=== PATIENT | female | born 1990 | race Caucasian/White ===

== ENCOUNTER 2017-10-28 13:51 | Outpatient (CLI) | payer MEDICAID, SELFPAY ==
[2017-10-28 14:34] LABS: Abs Immature Grans 0.03 k/cumm (0.0-0.09); Absolute Basophil Count 0.01 k/cumm (0.0-0.2); Absolute Eosinophil Count 0.13 k/cumm (0.0-0.7); Absolute Lymphocyte Count 1.79 k/cumm (1.2-3.4); Absolute Monocyte Count 0.61 k/cumm (0.11-0.7); Basophils % 0.1; Eosinophils % 1.3; HCT 35.7 % (36.0-46.0); HGB 12.7 g/dL (12.0-15.5); Immature Grans % 0.3; Lymphocytes % 18.3; Mean Corp. HGB Concentration 35.6 g/dL (32.0-36.0); Mean Corpuscular Hemoglobin 29.3 pg (27.0-33.0); Mean Corpuscular Volume 82.4 fL (80-95); Mean Platelet Volume 9.1 fL (8.0-11.0); Monocytes % 6.2; Neutrophils % 73.8; Platelet Count 287 x1000/uL (130-400); RBC 4.33 m/cumm (4.00-5.20); RBC Distribution Width 12.5 % (11.7-14.6); White Blood Cell Count 9.77 k/cumm (4.4-10.8)
[2017-10-29 11:17] LABS: Hepatitis B Surface Ag Negative (NEGAT)
[2017-10-29 11:34] LABS: HIV-1/2 Ag & Ab Screen Negative (NEGAT)
[2017-10-29 11:35] LABS: Hepatitis C Ab w Rflx HCV PCR Negative (NEGAT)
[2017-10-30 08:43] LABS: Rubella IgG Ab (UVM) Negative; Syphilis Serology (RPR) Negative (Negative)
== END 2017-10-28 14:11 ==
PROVIDERS: Visit Provider Obstetrics & Gynecology
DX: Z34.91 Encounter for supervision of normal pregnancy, unspecified, first trimester (principal)
CPT/HCPCS: 36415; 80055; 86850; 86900; 86901

== ENCOUNTER 2017-11-05 15:09 | Outpatient (CLI) | payer MEDICAID, SELFPAY ==
[2017-11-05 16:01] LABS: Abs Immature Grans 0.02 k/cumm (0.0-0.09); Absolute Basophil Count 0.02 k/cumm (0.0-0.2); Absolute Eosinophil Count 0.17 k/cumm (0.0-0.7); Absolute Lymphocyte Count 2.01 k/cumm (1.2-3.4); Absolute Monocyte Count 0.54 k/cumm (0.11-0.7); Absolute Neutrophil Count 6.11 k/cumm (1.2-6.7); Basophils % 0.2; Eosinophils % 1.9; HCT 36.3 % (36.0-46.0); HGB 12.7 g/dL (12.0-15.5); Immature Grans % 0.2; Lymphocytes % 22.7; Mean Corpuscular Hemoglobin 29.1 pg (27.0-33.0); Mean Corpuscular Volume 83.1 fL (80-95); Mean Platelet Volume 9.3 fL (8.0-11.0); Monocytes % 6.1; Neutrophils % 68.9; Platelet Count 278 x1000/uL (130-400); RBC 4.37 m/cumm (4.00-5.20); RBC Distribution Width 12.9 % (11.7-14.6); White Blood Cell Count 8.87 k/cumm (4.4-10.8)
[2017-11-05 16:34] LABS: *AMPHETAMINES SCREEN URINE Negative (Negative); *BARBITURATES SCREEN URINE Negative (Negative); *BENZODIAZEPINES SCREEN URINE Negative (Negative); Cannabinoids THC Negative (Negative); Cocaine Screen,Urine Negative (Negative); METHADONE URINE SCREEN Negative (Negative); OPIATES URINE SCREEN Negative (Negative); Tricyclic Antidepressants Negative (Negative)
[2017-11-05 17:03] LABS: TSH (W/Ref FT4) 1.59 uIU/mL (0.358-3.74)
[2017-11-07 12:15] LABS: HIV-1/2 Ag & Ab Screen Negative (NEGAT); Hepatitis B Surface Ag Negative (NEGAT)
[2017-11-07 12:29] LABS: Hepatitis C Ab w Rflx HCV PCR Negative (NEGAT); Rubella IgG Ab (UVM) Negative; Varicella IgG Antibody Positive
[2017-11-07 13:19] LABS: Syphilis Serology (RPR) Negative (Negative)
[2017-11-07 14:46] LABS: Chlamydia Result Negative; GC Result Negative; Specimen Description CERVIX
[2017-11-10 15:03] LABS: Buprenorphine Negative; Norbuprenorphine Negative
== END 2017-11-05 15:29 ==
PROVIDERS: Visit Provider Advanced Practice Midwife
DX: Z34.91 Encounter for supervision of normal pregnancy, unspecified, first trimester (principal); Z11.3 Encounter for screening for infections with a predominantly sexual mode of transmission; Z11.4 Encounter for screening for human immunodeficiency virus [HIV]; Z11.59 Encounter for screening for other viral diseases; Z01.84 Encounter for antibody response examination
CPT/HCPCS: 36415; 80307; 86787; 86803; 86850; 86900; 86901; 87340; 87389; 87491; 87591; 84443; 85025; 86592; 86762; 87086

== ENCOUNTER 2017-12-16 00:31 | Outpatient (CLI) | payer MEDICAID, SELFPAY ==
--- NOTE | 2017-12-16 07:19 | DI.US_ITS ---
Many abnormalities cannot be diagnosed. A normal exam does not exclude a congenital anomaly. Radiology No. LMP: Exam Date: 12/16/17 [facility] wks days on EDC ([facility]) 05/22/18 Confirmed: HISTORY: SURVEY, Z34.90 ---- PREDICTED GESTATIONAL AGE NUMBER 17.4 weeks with a range of 16.4 week to 18.4 weeks. 1 Determined by___1STUS___LMP__X_HISTORY Info. pertaining to fetus # PLACENTA PRESENTATION Grade 0-1 Cephalic___ Anterior_X__Posterior___ Breech__X__ Right Left Transverse(head right___ Fundal___Low-lying___Previa___ Transverse(head left___ Varying BIOMETRY AMNIOTIC FLUID BPD: 35 mm 16.5 weeks Normal HC: 142 mm 17.4 weeks AC: 116 mm 17.2 weeks FL: 23 mm 17 weeks AMNIOTIC FLUID INDEX >26 WK CRL: mm weeks Cisterna Magna: 4.4 mm CI: 72 RUQ: LUQ Cerebellum: 1.73 cm EFW: 184 grams 22 nd Percentile RLQ: LLQ Total: cms Composite AGE= 17.1 wks EDC by US 05/25/18____ BIOPHYSICAL PROFILE ANATOMY IDENTIFIED SCORE 0/2 Heart: 4-Chamber_X__Rate:BPM__136___ LVOT: X_ RVOT:____X____ Amniotic Fluid(>2cms)____ Stomach: X Kidneys:____X___ Respirations (>30 secs) Bladder: NS___ Post. Fossa:____X Body Flex/Extension 3 vessel cord:__X Ventricles:___X cord insertion:___X__ Lips:___X_ Extremity Flex/Extension spinal morphology:____X____Nose:X Total Score= Palate: X__ NS=not seen The bladder is suboptimally distended. A viable breech intrauterine rebolledo has a cardiac rate of 136 beats per minute. The gestational age is estimated to be 17 weeks and 1 day. An anterior placenta is identified. The amniotic fluid index is normal. The patient is to return for follow up bladder images on 12/22/17. Please see the OB ultrasound worksheet for complete details
== END 2017-12-16 00:51 ==
PROVIDERS: Visit Provider Obstetrics & Gynecology
DX: Z34.92 Encounter for supervision of normal pregnancy, unspecified, second trimester (principal)
CPT/HCPCS: 76805

== ENCOUNTER 2017-12-22 01:06 | Outpatient (CLI) | payer SELFPAY ==
--- NOTE | 2017-12-22 15:00 | DI.US_ITS ---
SYMPTOM/DIAGNOSIS: F/U TO COMPLETE SURVEY LIMITED OBSTETRICAL ULTRASOUND: Comparison is 12/16/17. There is a single intrauterine fetus in the cephalic presentation. heart rate is 160 BPM The urinary bladder was visualized with two umbilical arteries present. The placenta is anterior. A complete anatomic evaluation and biometry were not performed at this examination. Many abnormalities cannot be diagnosed. A normal exam does not exclude a congenital anomaly. Radiology No. [id number] LMP: 08/15/2017 Exam Date: [facility] wks days on EDC ([facility]) 05/22/2018 Confirmed: HISTORY: f/u bladder images ---- PREDICTED GESTATIONAL AGE NUMBER 18 +3 weeks with a range of week to weeks. 1 Determined by_XX__1STUS___LMP___HISTORY Info. pertaining to fetus # PLACENTA PRESENTATION Grade I Cephalic__XX_ Anterior___Posterior___ Breech____ Right Left Transverse(head right___ Fundal___Low-lying___Previa___ Transverse(head left___ Varying BIOMETRY AMNIOTIC FLUID BPD: mm weeks Normal HC: mm weeks Oligo Polyhydramnios AC: mm weeks FL: mm weeks AMNIOTIC FLUID INDEX >26 WK CRL: mm weeks Cisterna Magna: mm CI: RUQ: LUQ Cerebellum: cm EFW: grams Percentile RLQ: LLQ Total: cms Composite AGE= wks EDC by US BIOPHYSICAL PROFILE ANATOMY IDENTIFIED SCORE 0/2 Heart: 4-Chamber___Rate:BPM_160____ LVOT: RVOT: Amniotic Fluid(>2cms)____ Stomach: Kidneys: Respirations (>30 secs) Bladder:__XX Post. Fossa: Body Flex/Extension 3 vessel cord: Ventricles: cord insertion: Lips:____ Extremity Flex/Extension spinal morphology: Nose: Total Score= Palate: NS=not seen
== END 2017-12-22 01:26 ==
PROVIDERS: Visit Provider Obstetrics & Gynecology
DX: Z34.92 Encounter for supervision of normal pregnancy, unspecified, second trimester (principal); Z36.2 Encounter for other antenatal screening follow-up
CPT/HCPCS: 76815

== ENCOUNTER 2018-01-07 00:27 | Outpatient (CLI) | payer SELFPAY ==
--- NOTE | 2018-01-07 13:45 | DI.US_ITS ---
SYMPTOMS/DIAGNOSIS: FLANK PAIN, R10.9, H/O RENAL CALCULUS, PT IS RENAL ULTRASOUND: The right kidney measures 10.2 cm in length. There is normal parenchymal thickness. There is mild hydronephrosis. There is a 4 mm shadowing echogenic focus in the mid right kidney and an additional 8 mm calcification also in the mid right kidney closer to the lower pole. The left kidney is normal in size and parenchymal thickness. No left renal calculi or left hydronephrosis is seen. The bladder wall appears smooth. Both ureteral jets were visualized. The prevoid bladder volume measures 382 cc's. No bladder calculi are seen. There is a postvoid residual of 5 cc's. IMPRESSION: Mild right hydronephrosis. Right renal calculi.
== END 2018-01-07 00:47 ==
PROVIDERS: Visit Provider Obstetrics & Gynecology Gynecology
DX: R10.31 Right lower quadrant pain (principal); N13.30 Unspecified hydronephrosis; N20.0 Calculus of kidney; Z33.1 Pregnant state, incidental
CPT/HCPCS: 76770

== ENCOUNTER 2018-03-02 14:46 | Outpatient (CLI) | payer MEDICAID, SELFPAY ==
[2018-03-02 15:35] LABS: Glucose,1 Hr (Glucola) 95 mg/dL (80-140)
[2018-03-02 15:46] LABS: HCT 35.3 % (36.0-46.0); HGB 12.1 g/dL (12.0-15.5); Mean Corp. HGB Concentration 34.3 g/dL (32.0-36.0); Mean Corpuscular Hemoglobin 29.4 pg (27.0-33.0); Mean Corpuscular Volume 85.9 fL (80-95); Mean Platelet Volume 9.1 fL (8.0-11.0); Platelet Count 284 x1000/uL (130-400); RBC 4.11 m/cumm (4.00-5.20); RBC Distribution Width 13.1 % (11.7-14.6)
== END 2018-03-02 15:06 ==
PROVIDERS: PCP Internal Medicine; Visit Provider Obstetrics & Gynecology Gynecology
DX: Z34.93 Encounter for supervision of normal pregnancy, unspecified, third trimester (principal)
CPT/HCPCS: 36415; 82950; 85027

== ENCOUNTER 2018-03-13 11:14 | Outpatient (CLI) | payer MEDICAID, SELFPAY | END 2018-03-13 11:34 | PROVIDERS: PCP Internal Medicine; Visit Provider Obstetrics & Gynecology | DX: O26.893 Other specified pregnancy related conditions, third trimester (principal); R55 Syncope and collapse; Z3A.30 30 weeks gestation of pregnancy | CPT/HCPCS: 59025 ==

== ENCOUNTER 2018-04-28 17:14 | Outpatient (REF) | payer MEDICAID, SELFPAY | END 2018-04-28 17:34 | LOC: LBN 17:14 | PROVIDERS: PCP Internal Medicine; Visit Provider Obstetrics & Gynecology | DX: Z34.93 Encounter for supervision of normal pregnancy, unspecified, third trimester (principal); Z36.85 Encounter for antenatal screening for Streptococcus B | CPT/HCPCS: 87081 ==

== ENCOUNTER 2018-05-29 16:45 | Inpatient (IN) | payer MEDICAID, SELFPAY ==
[2018-05-29 17:45] LABS: HCT 32.9 % (36.0-46.0); HGB 10.9 g/dL (12.0-15.5); Mean Corp. HGB Concentration 33.1 g/dL (32.0-36.0); Mean Corpuscular Hemoglobin 26.5 pg (27.0-33.0); Platelet Count 295 x1000/uL (130-400); RBC 4.11 m/cumm (4.00-5.20); RBC Distribution Width 13.9 % (11.7-14.6); White Blood Cell Count 10.19 k/cumm (4.4-10.8)
[2018-05-29] MEDS: Lactated Ringers 1,000 ML 125 ML IV (19:06)
[2018-05-29] MEDS: miSOPROStol 25 MCG TAB PO (22:37)
[2018-05-29] MEDS: Zolpidem 5 MG TAB 10 MG PO (22:37)
[2018-05-30] MEDS: miSOPROStol 25 MCG TAB PO (02:59)
--- NOTE | 2018-05-30 08:40 | W.PM.HP.N ---
Date of service: 05/29/18 Time of Service: 22:00 Assessment and Plan (1) Post-dates : Current visit: Yes Status: Acute Admit for cervical ripening and IOL of labor with cytotec and then pitocin. We discussed options for pain management during labor. History of Present Illness 28 year old at 41 weeks admitted for IOL for postdates. Her has been complicated by nephrolithiasis. 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 - [employer] Pets and animals: No Sexually active: Yes Current gender identity: female What is your relationship status?: Panel score (0-1 are the most socially isolated patients): 1 Seatbelt use: always History History 1 Para 0 Hx # Term Pregnancies 0 Multiple births Hx # Pregnancies Ectopic pregnancies AB induced Hx Number of Living Children 0 AB spontaneous Meds Home Medications Medication Instructions Recorded Confirmed Type 1 tab PO DAILY 11/05/17 05/29/18 History vitamin,calcium,ikxrajya-xagl-vfoph acid tablet pantoprazole 20 mg tablet,delayed 20 mg PO DAILY #30 tab 02/27/18 05/29/18 Rx release oxycodone-acetaminophen 5 mg-325 1 tab PO Q6H #10 tab MDD 4 05/25/18 05/29/18 Rx mg tablet Allergies Allergy/AdvReac Type Severity Reaction Status Date / Time No Known Allergies Allergy Verified 05/20/18 12:45 Results Labs : 05/29/18 Unknown Laboratory Results - last 24 hr 05/29/18 05/29/18 05/29/18 17:30 17:30 Unknown WBC 10.19 Cancelled RBC 4.11 Cancelled Hgb 10.9 L Cancelled Hct 32.9 L Cancelled MCV 80.0 Cancelled MCH 26.5 L Cancelled MCHC 33.1 Cancelled RDW 13.9 Cancelled Plt Count 295 Cancelled MPV 9.0 Cancelled Patient ABO/Rh O Positive Antibody Screen Negative 05/29/18 Unknown WBC RBC Hgb Hct MCV MCH MCHC RDW Plt Count MPV Patient ABO/Rh Cancelled Antibody Screen
--- NOTE | 2018-05-30 08:43 | HPE_ITS ---
Date of service: 05/29/18 Time of Service: 22:00 Assessment and Plan (1) Post-dates : Current visit: Yes Status: Acute Admit for cervical ripening and IOL of labor with cytotec and then pitocin. We discussed options for pain management during labor. History of Present Illness 28 year old at 41 weeks admitted for IOL for postdates. Her has been complicated by nephrolithiasis. 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 - [employer] Pets and animals: No Sexually active: Yes Current gender identity: female What is your relationship status?: Panel score (0-1 are the most socially isolated patients): 1 Seatbelt use: always History History 1 Para 0 Hx # Term Pregnancies 0 Multiple births Hx # Pregnancies Ectopic pregnancies AB induced Hx Number of Living Children 0 AB spontaneous Meds Home Medications Medication Instructions Recorded Confirmed Type 1 tab PO DAILY 11/05/17 05/29/18 History vitamin,calcium,dcequgcc-jtgj-kqalp acid tablet pantoprazole 20 mg tablet,delayed 20 mg PO DAILY #30 tab 02/27/18 05/29/18 Rx release oxycodone-acetaminophen 5 mg-325 1 tab PO Q6H #10 tab MDD 4 05/25/18 05/29/18 Rx mg tablet Allergies Allergy/AdvReac Type Severity Reaction Status Date / Time No Known Allergies Allergy Verified 05/20/18 12:45 Results Labs : 05/29/18 Unknown Laboratory Results - last 24 hr 05/29/18 05/29/18 05/29/18 17:30 17:30 Unknown WBC 10.19 Cancelled RBC 4.11 Cancelled Hgb 10.9 L Cancelled Hct 32.9 L Cancelled MCV 80.0 Cancelled MCH 26.5 L Cancelled MCHC 33.1 Cancelled RDW 13.9 Cancelled Plt Count 295 Cancelled MPV 9.0 Cancelled Patient ABO/Rh O Positive Antibody Screen Negative 05/29/18 Unknown WBC RBC Hgb Hct MCV MCH MCHC RDW Plt Count MPV Patient ABO/Rh Cancelled Antibody Screen
[2018-05-30] MEDS: Lactated Ringers 1,000 ML 125 ML IV ×3 (12:43→22:28)
[2018-05-30] MEDS: MORPHine 2 MG/ML SYR IVP (17:57)
[2018-05-30] MEDS: Normal Saline Flush 10 ML SYR IVP (17:58)
--- NOTE | 2018-05-30 19:48 | W.PM.PROGNOT ---
Date of Service Date of service: 05/30/18 Time of Service: 19:48 Subjective Interval history since last seen: I was contacted by nursing for question of recurrent late decelerations on the tracing. Pitocin had been discontinued, oxygen applied, fluid bolus given, and patient repositioned. On my review of the tracing two variable decelerations are noted approximately 1 hour ago. Recurrent accelerations are noted with no late decelerations. The tracing is Category I. Cx now 4/100/-2 with contractions q 2 min. The patient requests an epidural at this point. Will consult anesthesia. Plan to restart the pitocin after the epidural is administered. Objective Objective Clinical Data: Vital Signs Pain Level 8 05/30/18 17:57 Intake & Output 05/29/18 05/30/18 05/30/18 23:59 11:59 23:59 Intake Total 390.917 / 390.917 7.65 / 780.567 772.917 / 780.567 Balance 390.917 / 390.917 7.65 / 780.567 772.917 / 780.567 Weight 160 lb Intake: IV 390.917 / 390.917 7.65 / 780.567 772.917 / 780.567 Laboratory Results WBC Cancelled 05/29/18 Unknown RBC Cancelled 05/29/18 Unknown Hgb Cancelled 05/29/18 Unknown Hct Cancelled 05/29/18 Unknown MCV Cancelled 05/29/18 Unknown MCH Cancelled 05/29/18 Unknown MCHC Cancelled 05/29/18 Unknown RDW Cancelled 05/29/18 Unknown Plt Count Cancelled 05/29/18 Unknown MPV Cancelled 05/29/18 Unknown Patient ABO/Rh Cancelled 05/29/18 Unknown Antibody Screen Negative 05/29/18 17:30
--- NOTE | 2018-05-30 19:52 | PGE_ITS ---
Date of Service Date of service: 05/30/18 Time of Service: 19:48 Subjective Interval history since last seen: I was contacted by nursing for question of recurrent late decelerations on the tracing. Pitocin had been discontinued, oxygen applied, fluid bolus given, and patient repositioned. On my review of the tracing two variable decelerations are noted approximately 1 hour ago. Recurrent accelerations are noted with no late decelerations. The tracing is Category I. Cx now 4/100/-2 with contractions q 2 min. The patient requests an epidural at this point. Will consult anesthesia. Plan to restart the pitocin after the epidural is admin istered. Objective Objective Clinical Data: Vital Signs Pain Level 8 05/30/18 17:57 Intake & Output 05/29/18 05/30/18 05/30/18 23:59 11:59 23:59 Intake Total 390.917 / 390.917 7.65 / 780.567 772.917 / 780.567 Balance 390.917 / 390.917 7.65 / 780.567 772.917 / 780.567 Weight 160 lb Intake: IV 390.917 / 390.917 7.65 / 780.567 772.917 / 780.567 Laboratory Results WBC Cancelled 05/29/18 Unknown RBC Cancelled 05/29/18 Unknown Hgb Cancelled 05/29/18 Unknown Hct Cancelled 05/29/18 Unknown MCV Cancelled 05/29/18 Unknown MCH Cancelled 05/29/18 Unknown MCHC Cancelled 05/29/18 Unknown RDW Cancelled 05/29/18 Unknown Plt Count Cancelled 05/29/18 Unknown MPV Cancelled 05/29/18 Unknown Patient ABO/Rh Cancelled 05/29/18 Unknown Antibody Screen Negative 05/29/18 17:30
[2018-05-30] MEDS: FentaNYL/ROPIvacaine 2 mcg/ml and 0.1% 200 ML CADD Cassette EP (21:00)
[2018-05-30] MEDS: Ondansetron 4 MG/2 ML VIAL IVP (21:45)
[2018-05-31] MEDS: Ibuprofen 600 MG TAB PO ×3 (04:58→19:04)
[2018-05-31] MEDS: Acetaminophen 325 MG TAB 650 MG PO ×3 (04:58→15:37)
[2018-05-31] MEDS: Hamamelis Leaf/Glycerin 100 EACH BOX PR (05:00)
[2018-05-31] MEDS: Prenatal Multivitamin w/CA,FE TAB 1 TAB PO (10:11)
--- NOTE | 2018-05-31 11:19 | W.PM.PROGNOT ---
Date of Service Date of service: 06/01/18 Time of Service: 18:55 Assessment and Plan (1) Vaginal delivery: Current visit: Yes Status: Acute PPD 0 s/p with vaginal tear. Continue routine care. Subjective Interval history since last seen: Doing well this morning. Pain well controlled No significant vaginal bleeding. Has been out of bed. Objective Objective Clinical Data: Vital Signs Pain Level 1 05/31/18 10:11 Intake & Output 05/30/18 05/30/18 05/31/18 11:59 23:59 11:59 Intake Total 7.65 / 8636.500 8655.516 / 1375.166 Balance 7.65 / 3459.788 5171.516 / 1375.166 Weight 160 lb Intake: IV 7.65 / 3979.591 0129.516 / 1375.166 Laboratory Results WBC Cancelled 05/29/18 Unknown RBC Cancelled 05/29/18 Unknown Hgb Cancelled 05/29/18 Unknown Hct Cancelled 05/29/18 Unknown MCV Cancelled 05/29/18 Unknown MCH Cancelled 05/29/18 Unknown MCHC Cancelled 05/29/18 Unknown RDW Cancelled 05/29/18 Unknown Plt Count Cancelled 05/29/18 Unknown MPV Cancelled 05/29/18 Unknown Patient ABO/Rh Cancelled 05/29/18 Unknown Antibody Screen Negative 05/29/18 17:30
[2018-06-01] MEDS: Ibuprofen 600 MG TAB PO ×4 (01:01→20:37)
[2018-06-01] MEDS: Acetaminophen 325 MG TAB 650 MG PO ×4 (01:01→15:45)
[2018-06-01] MEDS: Prenatal Multivitamin w/CA,FE TAB 1 TAB PO (07:37)
[2018-06-01] MEDS: oxyCODONE 5 mg/Acetaminophen 325 mg TAB PO ×3 (17:40→21:55)
[2018-06-01 18:39] LABS: HCT 26.6 % (36.0-46.0); HGB 8.5 g/dL (12.0-15.5); Mean Corpuscular Hemoglobin 26.3 pg (27.0-33.0); Mean Corpuscular Volume 82.4 fL (80-95); Mean Platelet Volume 8.9 fL (8.0-11.0); Platelet Count 301 x1000/uL (130-400); RBC 3.23 m/cumm (4.00-5.20); RBC Distribution Width 14.2 % (11.7-14.6); White Blood Cell Count 12.23 k/cumm (4.4-10.8)
[2018-06-01 18:48] LABS: ALT 14 U/L (12-78); AST 18 U/L (15-37); Albumin 2.4 g/dL (3.4-5.0); Alkaline Phosphatase 135 U/L (46-116); Anion Gap 10.2 mmol/L (3-11); BUN 8 mg/dL (7-18); Bilirubin, Total 0.2 mg/dL (0.2-1.0); CO2 23.8 mmol/L (21.0-32.0); CREATININE 0.65 mg/dL (0.55-1.02); Calcium 8.4 mg/dL (8.5-10.1); Chloride 105 mmol/L (98-107); Glucose 83 mg/dL (70-100); Potassium 3.4 mmol/L (3.5-5.1); Sodium 139 mmol/L (136-145); Total Protein 5.7 g/dL (6.4-8.2)
--- NOTE | 2018-06-01 18:58 | PGE_ITS ---
Date of Service Date of service: 06/01/18 Time of Service: 18:55 Assessment and Plan (1) Vaginal delivery: Current visit: Yes Status: Acute PPD 0 s/p with vaginal tear. Continue routine care. Subjective Interval history since last seen: Doing well this morning. Pain well controlled No significant vaginal bleeding. Has been out of bed. Objective Objective Clinical Data: Vital Signs Pain Level 1 05/31/18 10:11 Intake & Output 05/30/18 05/30/18 05/31/18 11:59 23:59 11:59 Intake Total 7.65 / 4928.378 3744.516 / 1375.166 Balance 7.65 / 1629.044 1254.516 / 1375.166 Weight 160 lb Intake: IV 7.65 / 2393.755 0072.516 / 1375.166 Laboratory Results WBC Cancelled 05/29/18 Unknown RBC Cancelled 05/29/18 Unknown Hgb Cancelled 05/29/18 Unknown Hct Cancelled 05/29/18 Unknown MCV Cancelled 05/29/18 Unknown MCH Cancelled 05/29/18 Unknown MCHC Cancelled 05/29/18 Unknown RDW Cancelled 05/29/18 Unknown Plt Count Cancelled 05/29/18 Unknown MPV Cancelled 05/29/18 Unknown Patient ABO/Rh Cancelled 05/29/18 Unknown Antibody Screen Negative 05/29/18 17:30
--- NOTE | 2018-06-01 19:00 | W.PM.PROGNOT ---
Date of Service Date of service: 06/01/18 Time of Service: 19:00 Assessment and Plan (1) Vaginal delivery: Current visit: Yes Status: Acute (2) Fluid overload: Current visit: Yes Status: Acute Review of I/Os from labor show she is approximately 3 liters positive. Will provide a single dose of Lasix PO. Subjective Interval history since last seen: Called to bedside for evaluation of elevated blood pressure. The patient also reports pelvic, back and leg pain down inner thigh. Highest blood pressure was noted to be 142/80 and now is 119/72. Laboratory studies including CBC and CMP were normal. Exam Resp Other: Lungs CTA Extrem Other: 2+ pitting edema bilatarally Objective Objective Clinical Data: Abnormal lab results 06/01/18 06/01/18 Range/Units 18:30 18:30 WBC 12.23 H (4.4-10.8) k/cumm RBC 3.23 L (4.00-5.20) m/cumm Hgb 8.5 L (12.0-15.5) g/dL Hct 26.6 L (36.0-46.0) % MCH 26.3 L (27.0-33.0) pg Potassium 3.4 L (3.5-5.1) mmol/L Calcium 8.4 L (8.5-10.1) mg/dL Alkaline Phosphatase 135 H (46-116) U/L Total Protein 5.7 L (6.4-8.2) g/dL Albumin 2.4 L (3.4-5.0) g/dL Vital Signs Pain Level 4 06/01/18 15:45 Laboratory Results WBC 12.23 k/cumm (4.4-10.8) H 06/01/18 18:30 RBC 3.23 m/cumm (4.00-5.20) L 06/01/18 18:30 Hgb 8.5 g/dL (12.0-15.5) L 06/01/18 18:30 Hct 26.6 % (36.0-46.0) L 06/01/18 18:30 MCV 82.4 fL (80-95) 06/01/18 18:30 MCH 26.3 pg (27.0-33.0) L 06/01/18 18:30 MCHC 32.0 g/dL (32.0-36.0) 06/01/18 18:30 RDW 14.2 % (11.7-14.6) 06/01/18 18:30 Plt Count 301 x1000/uL (130-400) 06/01/18 18:30 MPV 8.9 fL (8.0-11.0) 06/01/18 18:30 Sodium 139 mmol/L (136-145) 06/01/18 18:30 Potassium 3.4 mmol/L (3.5-5.1) L 06/01/18 18:30 Chloride 105 mmol/L (98-107) 06/01/18 18:30 Carbon Dioxide 23.8 mmol/L (21.0-32.0) 06/01/18 18:30 Anion Gap 10.2 mmol/L (3-11) 06/01/18 18:30 BUN 8 mg/dL (7-18) 06/01/18 18:30 Creatinine 0.65 mg/dL (0.55-1.02) 06/01/18 18:30 Estimated GFR/1.73 m2 >= 60.00 (mL/min/1.73m2) 06/01/18 18:30 Glucose 83 mg/dL (70-100) 06/01/18 18:30 Calcium 8.4 mg/dL (8.5-10.1) L 06/01/18 18:30 Total Bilirubin 0.2 mg/dL (0.2-1.0) 06/01/18 18:30 AST 18 U/L (15-37) 06/01/18 18:30 ALT 14 U/L (12-78) 06/01/18 18:30 Alkaline Phosphatase 135 U/L (46-116) H 06/01/18 18:30 Total Protein 5.7 g/dL (6.4-8.2) L 06/01/18 18:30 Albumin 2.4 g/dL (3.4-5.0) L 06/01/18 18:30 Patient ABO/Rh Cancelled 05/29/18 Unknown Antibody Screen Negative 05/29/18 17:30
[2018-06-01] MEDS: Furosemide 20 MG TAB 10 MG PO (19:22)
[2018-06-02] MEDS: oxyCODONE 5 mg/Acetaminophen 325 mg TAB PO ×2 (03:10→07:08)
[2018-06-02 07:54] LABS: HCT 28.4 % (36.0-46.0); HGB 9.3 g/dL (12.0-15.5); Mean Corp. HGB Concentration 32.7 g/dL (32.0-36.0); Mean Corpuscular Hemoglobin 27.2 pg (27.0-33.0); Platelet Count 299 x1000/uL (130-400); RBC 3.42 m/cumm (4.00-5.20); RBC Distribution Width 14.1 % (11.7-14.6); White Blood Cell Count 9.61 k/cumm (4.4-10.8)
[2018-06-02] MEDS: Measles, Mumps, & Rubella Vaccine 0.5 ML VIAL SC (08:01)
[2018-06-02] MEDS: Prenatal Multivitamin w/CA,FE TAB 1 TAB PO (08:01)
--- NOTE | 2018-06-02 09:51 | W.PM.DS.N ---
Date of service: 06/02/18 Time of Service: 09:51 DS: Diagnosis Discharge Diagnosis (1) Vaginal delivery: Status: Acute (2) Fluid overload: Status: Acute (3) Right flank pain: Status: Acute Discharge Plan Disposition Patient Disposition: HOME Condition: Good Discharge Details Reason For Visit: IUP AT TERM Admit Date/Time: 05/29/18 16:45 Admit Provider: Amilcar Agustin Attending Provider: Amilcar Agustin Primary Care Provider: Matheus Puente Hospital Course Hospital Course: IOL at term. Cervical ripening and oxytocin augmentation of labor. Epidural for labor discomfort. of male infant named Chaim. Discharge to home PPD 2 successfully . Percocet for R flank pain. F/U appt with Dr. Alonso Urology Dept 06/06/18 Home Meds and New Rx's Prescriptions: No Action prenat.vits,terrell,prq-pozr-geqhl tablet 1 tab PO DAILY RF: 0 pantoprazole [Protonix] 20 mg tablet,delayed release (DR/EC) 20 mg PO DAILY Qty: 30 RF: 1 oxycodone-acetaminophen [Percocet] 5-325 mg tablet 1 tab PO Q6H MDD 4 Qty: 10 RF: 0 oxycodone-acetaminophen [Percocet] 5-325 mg tablet 1 tab PO Q6H MDD 4 PRN (Reason: pain) Qty: 14 RF: 0 Discharge Instructions Stand Alone Forms: BC Instructions, BC Post Vaginal Deliver Activity:: Activity as Tolerated Equipment/Supplies:: No Equipment Needed Diet:: As Tolerated Discharge Orders Discharge Orders: Discharge Order (Routine); Ordered 06/02/18 Ordered By: Yecenia Neil Exam Const General: no acute distress Nutritional Appearance: average body habitus Orientation: alert, awake and oriented x3 Chest Chest: normal inspection of the chest (Successfully breading. No evidence of nipple excoriation) Breast inspection: normal inspection of the breasts Resp Effort & Inspection: normal respiratory effort External Female Exam: external appearance normal (No swelling or ecchymosis.Intact suture line) Skin General skin exam: no rashes or lesions noted DS: Data Vitals/I&O Vitals and I&O: Vital Signs Pain Level 6 06/02/18 07:08 Labs on day of discharge: Labs from last 24 hours 06/02/18 06/01/18 06/01/18 07:28 18:30 18:30 WBC 9.61 12.23 H RBC 3.42 L 3.23 L Hgb 9.3 L 8.5 L Hct 28.4 L 26.6 L MCV 83.0 82.4 MCH 27.2 26.3 L MCHC 32.7 32.0 RDW 14.1 14.2 Plt Count 299 301 MPV 9.0 8.9 Sodium 139 Potassium 3.4 L Chloride 105 Carbon Dioxide 23.8 Anion Gap 10.2 BUN 8 Creatinine 0.65 Estimated GFR/1.73 m2 >= 60.00 Glucose 83 Calcium 8.4 L Total Bilirubin 0.2 AST 18 ALT 14 Alkaline Phosphatase 135 H Total Protein 5.7 L Albumin 2.4 L PFSH Social History Smoking/Tobacco Use Status: Never Second Hand Exposure: No Alcohol Intake: former Substance use type: does not use Adopted: No Caregiver/Support person: No Foster care: No Household members: spouse Number of Children: 0 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
--- NOTE | 2018-06-02 09:56 | DSE_ITS ---
Date of service: 06/02/18 Time of Service: 09:51 DS: Diagnosis Discharge Diagnosis (1) Vaginal delivery: Status: Acute (2) Fluid overload: Status: Acute (3) Right flank pain: Status: Acute Discharge Plan Disposition Patient Disposition: HOME Condition: Good Discharge Details Reason For Visit: IUP AT TERM Admit Date/Time: 05/29/18 16:45 Admit Provider: Amilcar Agustin Attending Provider: Amilcar Agustin Primary Care Provider: Matheus Puente Hospital Course Hospital Course: IOL at term. Cervical ripening and oxytocin augmentation of labor. Epidural for labor discomfort. of male infant named Chaim. Discharge to home PPD 2 successfully . Percocet for R flank pain. F/U appt with Dr. Alonso [facility] Dept 06/06/18 Home Meds and New Rx's Prescriptions: No Action prenat.vits,terrell,lxy-ujmg-halcy tablet 1 tab PO DAILY RF: 0 pantoprazole [Protonix] 20 mg tablet,delayed release (DR/EC) 20 mg PO DAILY Qty: 30 RF: 1 oxycodone-acetaminophen [Percocet] 5-325 mg tablet 1 tab PO Q6H MDD 4 Qty: 10 RF: 0 oxycodone-acetaminophen [Percocet] 5-325 mg tablet 1 tab PO Q6H MDD 4 PRN (Reason: pain) Qty: 14 RF: 0 Discharge Instructions Stand Alone Forms: BC Instructions, BC Post Vaginal Deliver Activity:: Activity as Tolerated Equipment/Supplies:: No Equipment Needed Diet:: As Tolerated Discharge Orders Discharge Orders: Discharge Order (Routine); Ordered 06/02/18 Ordered By: Yecenia Neil Exam Const General: no acute distress Nutritional Appearance: average body habitus Orientation: alert, awake and oriented x3 Chest Chest: normal inspection of the chest (Successfully breading. No evidence of nipple excoriation) Breast inspection: normal inspection of the breasts Resp Effort & Inspection: normal respiratory effort External Female Exam: external appearance normal (No swelling or ecchymosis.Intact suture line) Skin General skin exam: no rashes or lesions noted DS: Data Vitals/I&O Vitals and I&O: Vital Signs Pain Level 6 06/02/18 07:08 Labs on day of discharge: Labs from last 24 hours 06/02/18 06/01/18 06/01/18 07:28 18:30 18:30 WBC 9.61 12.23 H RBC 3.42 L 3.23 L Hgb 9.3 L 8.5 L Hct 28.4 L 26.6 L MCV 83.0 82.4 MCH 27.2 26.3 L MCHC 32.7 32.0 RDW 14.1 14.2 Plt Count 299 301 MPV 9.0 8.9 Sodium 139 Potassium 3.4 L Chloride 105 Carbon Dioxide 23.8 Anion Gap 10.2 BUN 8 Creatinine 0.65 Estimated GFR/1.73 m2 >= 60.00 Glucose 83 Calcium 8.4 L Total Bilirubin 0.2 AST 18 ALT 14 Alkaline Phosphatase 135 H Total Protein 5.7 L Albumin 2.4 L PFSH Social History Smoking/Tobacco Use Status: Never Second Hand Exposure: No Alcohol Intake: former Substance use type: does not use Adopted: No Caregiver/Support person: No Foster care: No Household members: spouse Number of Children: 0 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
== END 2018-06-02 11:45 | disposition home or self-care (01) | DRG 806 ==
PROVIDERS: Admitting Provider Obstetrics & Gynecology; PCP Internal Medicine; Visit Provider Obstetrics & Gynecology
DX: O48.0 Post-term pregnancy (principal); O71.4 Obstetric high vaginal laceration alone; Z37.0 Single live birth; Z3A.41 41 weeks gestation of pregnancy; O76 Abnormality in fetal heart rate and rhythm complicating labor and delivery; O90.89 Other complications of the puerperium, not elsewhere classified; E87.70 Fluid overload, unspecified; M54.5 Low back pain; Z87.442 Personal history of urinary calculi
CPT/HCPCS: 36415; 80053; 85027; 86850; 86900; 86901; 99223; 99233; NC; 59200; J2405; J3010; J3490

== ENCOUNTER 2018-07-07 00:17 | Outpatient (CLI) | payer MEDICAID, SELFPAY ==
--- NOTE | 2018-07-07 08:52 | DI.CT_ITS ---
SYMPTOM/DIAGNOSIS: RECURRENT KIDNEY STONES, CALCULUS OF KIDNEY, N20.0,ASSESS STONE ABDOMEN AND PELVIC CT: CT scan of the abdomen and pelvis was performed without intravenous or oral contrast. There is slight patient motion artifact. The visualized lung bases are clear. Lack of IV contrast does limit evaluation of the abdominal and pelvic organs. The unenhanced liver is unremarkable. The gallbladder appears negative. No biliary ductal dilatation is seen. The unenhanced pancreas, spleen and adrenal glands show no acute abnormality. There are stones seen within the right kidney, there are approximately 4 stones present. The largest is seen in the lower pole and measures 3 mm. There is a 2 mm. stone seen in the mid pole. No right ureterolithiasis or hydronephrosis identified. In the left kidney, there is a tiny, 1-2 mm. non obstructing stone in the lower pole. No ureterolithiasis or hydronephrosis is present. The urinary bladder is intact. The reproductive organs are unremarkable. The bowel shows no evidence of obstruction or inflammation. There is a trace amount of free fluid in the cul-de-sac which is likely physiologic. No significant abdominal or pelvic adenopathy or pneumoperitoneum is seen. The abdominal aorta is of normal caliber. 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 An inflammatory arthritis cannot be excluded. IMPRESSION: 1. Bilateral nephrolithiasis.
== END 2018-07-07 00:37 ==
PROVIDERS: PCP Family Medicine; Visit Provider Urology
DX: N20.0 Calculus of kidney (principal)
CPT/HCPCS: 74176

== ENCOUNTER 2020-01-28 03:18 | Outpatient (CLI) | payer MEDICAID, SELFPAY ==
[2020-01-28 10:19] LABS: Abs Immature Grans 0.04 10^3/uL (0.0-0.06); Absolute Basophil Count 0.03 10^3/uL (0.0-0.2); Absolute Eosinophil Count 0.07 10^3/uL (0.0-0.7); Absolute Lymphocyte Count 1.68 10^3/uL (1.2-3.4); Absolute Monocyte Count 0.45 10^3/uL (0.1-0.8); Absolute Neutrophil Count 6.47 10^3/uL (1.2-6.7); Basophils % 0.3; Eosinophils % 0.8; HCT 36.3 % (36.0-46.0); HGB 12.5 g/dL (11.2-15.7); Immature Grans % 0.5; Lymphocytes % 19.2; MCH 28.5 pg (27.0-33.0); MCHC 34.4 % (32.0-36.0); MCV 82.7 fL (80-95); MPV 9.2 fL (8.0-11.0); Monocytes % 5.1; Neutrophils % 74.1; Nucleated RBC 0 %; Platelet Count 314 10^3/uL (130-400); RBC 4.39 10^6/uL (3.93-5.22); RDW 12.5 % (11.7-14.6); RDW-SD 37.8 fL; WBC 8.74 10^3/uL (4.4-10.8)
[2020-01-29 10:52] LABS: HIV-1/2 Ag & Ab Screen Negative (Negative)
[2020-01-29 14:47] LABS: Syphilis Total Ab w/Reflex Nonreactive (Nonreactive)
[2020-01-31 09:29] LABS: Hepatitis B Surface Ag Negative (Negative)
[2020-01-31 10:22] LABS: Hepatitis C Ab w Rflx HCV PCR Negative (Negative)
[2020-01-31 11:49] LABS: Varicella IgG Antibody Positive (See Note)
[2020-01-31 11:51] LABS: Rubella IgG Ab (UVM) Positive (See Note)
== END 2020-01-28 03:38 ==
PROVIDERS: PCP Family Medicine; Visit Provider Advanced Practice Midwife
DX: Z34.91 Encounter for supervision of normal pregnancy, unspecified, first trimester (principal); Z11.4 Encounter for screening for human immunodeficiency virus [HIV]; Z11.59 Encounter for screening for other viral diseases; Z01.84 Encounter for antibody response examination
CPT/HCPCS: 36415; 86787; 86803; 86850; 86900; 86901; 87340; 87389; 84443; 85025; 86762; 86780

== ENCOUNTER 2020-01-28 09:55 | Outpatient (REF) | payer MEDICAID, SELFPAY ==
--- NOTE | 2020-01-28 09:30 | PAPFT_PTH ---
PATIENT: [facility] LOC: [facility] U#:[id number] AGE/SX: 29/F ROOM: RE01/28/[address]: Johnson Alexandre RN : 1990 BED: DIS: 01/28/2020 SPEC #: [id number] RECD: 01/28/20 13:08 STATUS: ROHIT REJung #: [id number] KIM: 01/28/20 09:[address]: Johnson Alexandre DEPT: [facility] Cytology RECD BY: Nicolette De Leon ENTERED: 01/28/20 13:09 SP TYPE: PAPFT OTHR DR: Lenora Patten Tissues: 1 - CX/ENDOCX FOR PAP SMEARS Procedures: PAP THIN PREP/[facility] Screening Comments: [id number]
[2020-01-28 12:44] LABS: *AMPHETAMINES SCREEN URINE Negative (Negative); *BARBITURATES SCREEN URINE Negative (Negative); *BENZODIAZEPINES SCREEN URINE Negative (Negative); Cannabinoids THC Negative (Negative); Cocaine Screen,Urine Negative (Negative); METHADONE URINE SCREEN Negative (Negative); OPIATES URINE SCREEN Negative (Negative)
[2020-01-28 12:46] LABS: Tricyclic Antidepressants Negative (Negative)
[2020-01-31 14:59] LABS: Chlamydia Result Negative (Negative); GC Result Negative (Negative)
[2020-02-03 16:37] LABS: Buprenorphine Negative; Norbuprenorphine Negative
== END 2020-01-28 10:15 ==
LOC: LBN 09:55
PROVIDERS: PCP Family Medicine; Visit Provider Advanced Practice Midwife
DX: Z34.91 Encounter for supervision of normal pregnancy, unspecified, first trimester (principal); Z11.3 Encounter for screening for infections with a predominantly sexual mode of transmission; Z12.4 Encounter for screening for malignant neoplasm of cervix
CPT/HCPCS: 80307; 87491; 87591; 88142; 87086

== ENCOUNTER 2020-03-30 01:33 | Outpatient (CLI) | payer MEDICAID, SELFPAY ==
--- NOTE | 2020-03-30 | DI.US_ITS ---
EXAM: US OB 2-3 TRIMESTER CLINICAL HISTORY: SURVEY,Z34.90. TECHNIQUE: Transabdominal obstetrical ultrasound was performed. COMPARISON: US US renal from 01/07/2018 FINDINGS: There is a single viable intrauterine gestation with cardiac activity identified-163 bpm. Amniotic fluid: There is a normal amount of amniotic fluid. Placental location: The placenta is posterior grade 1,with no evidence of placenta previa.The distanc e from the tip of the placenta to the internal cervical os is 5 cm on today's study ANATOMY: A 3 vessel umbilical cord is seen. A four-chamber cardiac view was obtained. Right and left ventricular outflow tracts were imaged. There are no obvious abnormalities of the spinal column evident. There is no obvious abnormal ity of the anterior abdominal wall. stomach and urinary bladder are identified and there is no evidence of hydronephrosis. No abnormalities of the upper lip region are identified. No evidence of choroid plexus cysts i n the brain. Dating parameters place this at approximately 20 weeks and 2 days gestational age. BPD measures 19 weeks and 4 days HC measures 20 weeks and 3 days AC measures 20 weeks and 5 days FL measures 20 weeks and 2 days Estimated weight is 355 gm-0 pounds, 13 ounces Fetus is at the 39th percentile on the Hadlock scale. IMPRESSION:: Single viable intrauterine gestation which is approximately 20 weeks and 2 days gestati onal age, implying an CLAUDIO of August 15, 2020. There are no obvious anomalies evident on today's study. The placenta is posterior, grade 1 with no evidence of placenta previa. There is a normal amount of amniotic fluid. DATA REPOSITORY:
== END 2020-03-30 01:34 ==
LOC: DI 01:33
PROVIDERS: PCP Family Medicine; Visit Provider Obstetrics & Gynecology
DX: Z34.92 Encounter for supervision of normal pregnancy, unspecified, second trimester (principal); Z3A.20 20 weeks gestation of pregnancy
CPT/HCPCS: 76805

== ENCOUNTER 2020-05-17 03:20 | Outpatient (CLI) | payer MEDICAID, SELFPAY ==
[2020-05-17 09:16] LABS: HCT 35.6 % (36.0-46.0); MCH 29.4 pg (27.0-33.0); MCHC 33.7 % (32.0-36.0); MCV 87.3 fL (80-95); MPV 8.9 fL (8.0-11.0); Platelet Count 261 10^3/uL (130-400); RBC 4.08 10^6/uL (3.93-5.22); RDW 13.2 % (11.7-14.6); RDW-SD 41.7 fL; WBC 10.25 10^3/uL (4.4-10.8)
[2020-05-17 09:22] LABS: Glucose,1 Hr (Glucola) 109 mg/dL (80-140)
== END 2020-05-17 03:21 | disposition home or self-care (01) ==
LOC: LBO 03:21
PROVIDERS: PCP Family Medicine; Visit Provider Obstetrics & Gynecology Gynecology
DX: Z34.93 Encounter for supervision of normal pregnancy, unspecified, third trimester (principal); Z3A.28 28 weeks gestation of pregnancy
CPT/HCPCS: 36415; 82950; 85027

== ENCOUNTER 2020-07-04 02:14 | Outpatient (CLI) | payer MEDICAID, SELFPAY ==
--- NOTE | 2020-07-04 07:30 | DI.US_ITS ---
Exam(s) US OB VJ WEIGHT EXAM: US OB VJ WEIGHT CLINICAL HISTORY: size date discrepancy,Z34.83,SMALL FOR GEST AGE. TECHNIQUE: Transabdominal obstetrical ultrasound performed. COMPARISON: US US OB 2-3 TRIMESTER from 03/30/2020 FINDINGS:: Number of fetuses: One. position: Vertex. Placental location: Posterior. Grade 2 no evidence of previa. BIOMETRIC DATA: BPD: 84 mm = 34+ 0 weeks HC: 306 mm = 34+ 0 weeks AC: 301mm = 34+ 0 weeks FL: 66 mm = 34+1 weeks EFW: 2340 Gms = 25 % Composite Age: 34 weeks 0 days EDC: 15 August 2020 Heart Rate: 149BPM Amniotic fluid index: 16.0 cm. Amount of fluid is within normal limits. IMPRESSION: size and weight are within the expected range. DATA REPOSITORY:
== END 2020-07-04 02:34 ==
PROVIDERS: PCP Family Medicine; Visit Provider Obstetrics & Gynecology Gynecology
DX: O26.843 Uterine size-date discrepancy, third trimester (principal); Z3A.34 34 weeks gestation of pregnancy
CPT/HCPCS: 76816

== ENCOUNTER 2020-07-11 11:29 | Outpatient (REF) | payer MEDICAID, SELFPAY ==
[2020-07-11 12:26] LABS: *AMPHETAMINES SCREEN URINE Negative (Negative); *BARBITURATES SCREEN URINE Negative (Negative); *BENZODIAZEPINES SCREEN URINE Negative (Negative); Cannabinoids THC Negative (Negative); Cocaine Screen,Urine Negative (Negative); METHADONE URINE SCREEN Negative (Negative); OPIATES URINE SCREEN Negative (Negative)
[2020-07-11 12:30] LABS: Tricyclic Antidepressants Negative (Negative)
[2020-07-19 16:26] LABS: Buprenorphine Negative ng/mL (Cutoff: 5.0)
== END 2020-07-11 11:30 | disposition home or self-care (01) ==
LOC: LBN 11:29
PROVIDERS: PCP Family Medicine; Visit Provider Obstetrics & Gynecology Gynecology
DX: Z34.93 Encounter for supervision of normal pregnancy, unspecified, third trimester (principal); Z36.85 Encounter for antenatal screening for Streptococcus B; Z3A.34 34 weeks gestation of pregnancy
CPT/HCPCS: 80307; 87081

== ENCOUNTER 2020-08-11 10:03 | Outpatient (CLI) | payer MEDICAID, SELFPAY ==
[2020-08-11 10:13] VITALS: BP 120/78; PULSE 85; TEMP 36.5
[2020-08-11 10:19] VITALS: BP 120/78; PULSE 85
--- NOTE | 2020-08-11 11:33 | W.OBNST ---
Date of service: 08/11/20 Time of Service: 11:33 NST Evaluation Reason for NST Reasons for Nonstress Test: POSTDATES Gestational Age Gestational Age in Weeks and Days: 40 Weeks and 2Days Test and Monitor Explained Test/Monitor Explained: Test Explained, Monitor Explained and Patient Verbalized Understanding Vital Signs Blood Pressure: 120/78 Pulse: 85 Temperature: 97.7 F Urine Results Urine Protein: Negative Urine Ketones: Negative Urine Glucose: Negative Urine Blood: Negative NST Information Date on Monitor: 08/11/20 Time on Monitor: 10:15 Date off Monitor: 08/11/20 Time off Monitor: 10:49 Total Time on Monitor: 34 NST Interventions: PO Hydration NST Evaluation Patient States Movement: Present FHR Baseline: 135 Variability: Moderate 6-25 bpm Accelerations: 15x15 Decelerations: None NST Results: Reactive Note NST Note Note: Reactive, category 1 strip for NST 40 weeks and 2 days. Follow-up twice weekly NST, weekly OB visit. NST Reviewed and Verified by: Vanda Meyers
[2020-08-11 11:34] VITALS: BP 120/78; PULSE 85; TEMP 36.5
== END 2020-08-11 10:55 | disposition home or self-care (01) ==
LOC: BCD 10:06 → OBS 10:11
PROVIDERS: PCP Family Medicine; Visit Provider Obstetrics & Gynecology
DX: O48.0 Post-term pregnancy (principal); Z3A.40 40 weeks gestation of pregnancy
CPT/HCPCS: 59025

== ENCOUNTER 2020-08-13 13:21 | Outpatient (CLI) | payer MEDICAID, SELFPAY ==
[2020-08-13 13:53] VITALS: BP 137/81; PULSE 79
[2020-08-13 13:54] VITALS: BP 137/81; PULSE 79; RESP 16; TEMP 36.5
[2020-08-13 14:28] LABS: ROM Plus Negative
== END 2020-08-13 14:41 | disposition home or self-care (01) ==
LOC: BCD 13:26 → OBS 13:42
PROVIDERS: PCP Family Medicine; Visit Provider Obstetrics & Gynecology
DX: O48.0 Post-term pregnancy (principal); Z3A.40 40 weeks gestation of pregnancy
CPT/HCPCS: 84112; 59025

== ENCOUNTER 2020-08-15 10:00 | Inpatient (IN) | payer MEDICAID, SELFPAY ==
[2020-08-15] VITALS (37 sets, daily range): BP systolic 114–140; BP diastolic 51–87; PULSE 74–171; RESP 16; TEMP 36.6–37.2; O2SAT 47–100; BMI 27.4
--- NOTE | 2020-08-15 10:24 | W.OBNST ---
Date of service: 08/15/20 Time of Service: 10:24 NST Evaluation Reason for NST Reasons for Nonstress Test: POSTDATES Gestational Age Gestational Age in Weeks and Days: 40 Weeks and 6Days Test and Monitor Explained Test/Monitor Explained: Test Explained, Monitor Explained and Patient Verbalized Understanding Vital Signs Blood Pressure: 135/84 Pulse: 97 Temperature: 98 F Urine Results Urine Protein: Negative Urine Ketones: Negative Urine Glucose: Negative Urine Blood: Positive NST Information Date on Monitor: 08/15/20 Time on Monitor: 09:09 Date off Monitor: 08/15/20 Time off Monitor: 09:57 Total Time on Monitor: 48 NST Interventions: PO Hydration NST Evaluation Patient States Movement: Present FHR Baseline: 125 Variability: Moderate 6-25 bpm Accelerations: 15x15 Decelerations: None NST Results: Reactive Note NST Note Note: Category 1 strip. Significant flank pain. We will plan labor induction, epidural as needed. Anticipate . NST Reviewed and Verified by: Vanda Meyers
[2020-08-15] MEDS: miSOPROStol 25 MCG TAB VG (10:56)
[2020-08-15 11:07] LABS: HCT 35.7 % (36.0-46.0); HGB 11.8 g/dL (11.2-15.7); MCH 28.2 pg (27.0-33.0); MCHC 33.1 % (32.0-36.0); MCV 85.4 fL (80-95); MPV 8.9 fL (8.0-11.0); Platelet Count 289 10^3/uL (130-400); RBC 4.18 10^6/uL (3.93-5.22); RDW 13.4 % (11.7-14.6); RDW-SD 41.9 fL; WBC 9.29 10^3/uL (4.4-10.8)
[2020-08-15 12:02] LABS: Source Nasal/Nares
--- NOTE | 2020-08-15 12:33 | W.PM.OBNL1 ---
Date of service: 08/15/20 Time of Service: 12:33 Informed Consent Informed Consent: Other (Cervical ripening) Pelvic Exam Dilation: 1 Effacement (%): 50 station: -2 Position: OA Cervix Position: mid Consistency: soft Vaginal Exam Presentation: Cephalic Comments: Intravaginal Cytotec, 25 mcg placed Fetus A Categories: Category I Objective Abnormal lab results 08/15/20 Range/Units 10:55 Hct 35.7 L (36.0-46.0) % Temp Pulse Resp BP 98.1 F 90 16 118/68 08/15/20 11:19 08/15/20 11:20 08/15/20 11:19 08/15/20 11:20 Laboratory Results WBC 9.29 10^3/uL (4.4-10.8) 08/15/20 10:55 RBC 4.18 10^6/uL (3.93-5.22) 08/15/20 10:55 Hgb 11.8 g/dL (11.2-15.7) 08/15/20 10:55 Hct 35.7 % (36.0-46.0) L 08/15/20 10:55 MCV 85.4 fL (80-95) 08/15/20 10:55 MCH 28.2 pg (27.0-33.0) 08/15/20 10:55 MCHC 33.1 % (32.0-36.0) 08/15/20 10:55 RDW 13.4 % (11.7-14.6) 08/15/20 10:55 Plt Count 289 10^3/uL (130-400) 08/15/20 10:55 MPV 8.9 fL (8.0-11.0) 08/15/20 10:55 COVID-19 Source Nasal/Nares 08/15/20 11:54 Patient ABO/Rh O Positive 08/15/20 10:55 Antibody Screen NEGATIVE 08/15/20 10:55 Subjective Patient Reports: No new Complaints Interval history since last seen: Patient seen, comfortable with plan for labor induction. Risks and benefits of misoprostol for cervical ripening discussed. Informed consent obtained. Results Hemoglobin/Hematocrit: Hgb 11.8 g/dL (11.2-15.7) 08/15/20 10:55 Hct 35.7 % (36.0-46.0) L 08/15/20 10:55 Abnormal Lab Findings: Abnormal Labs 08/15/20 10:55 Hct 35.7 L
[2020-08-15 13:13] LABS: COVID-19 PCR Negative (Negative)
[2020-08-15] MEDS: Lactated Ringers 1,000 ML 999 ML IV (14:26)
[2020-08-15] MEDS: HYDROmorphone 2 MG/ML VIAL 1 MG IVP (14:33)
--- NOTE | 2020-08-15 16:02 | W.PM.OBNL1 ---
Date of service: 08/15/20 Time of Service: 16:02 Informed Consent Informed Consent: Other (Cervical ripening) Assessment and Plan Assessment and plan (1) Post-dates : Status: Acute Assessment and plan: Labor induction status post misoprostol x2 with Pitocin augmentation and now to follow. Right flank pain is improved after pain medication. If continued pain after delivery, would consider CT scan to evaluate the possibility of renal calculus. Urology service aware. (2) Right flank pain: Status: Acute Objective Abnormal lab results 08/15/20 Range/Units 10:55 Hct 35.7 L (36.0-46.0) % Temp Pulse Resp BP 97.9 F 76 16 118/68 08/15/20 14:41 08/15/20 14:40 08/15/20 14:41 08/15/20 14:40 Laboratory Results WBC 9.29 10^3/uL (4.4-10.8) 08/15/20 10:55 RBC 4.18 10^6/uL (3.93-5.22) 08/15/20 10:55 Hgb 11.8 g/dL (11.2-15.7) 08/15/20 10:55 Hct 35.7 % (36.0-46.0) L 08/15/20 10:55 MCV 85.4 fL (80-95) 08/15/20 10:55 MCH 28.2 pg (27.0-33.0) 08/15/20 10:55 MCHC 33.1 % (32.0-36.0) 08/15/20 10:55 RDW 13.4 % (11.7-14.6) 08/15/20 10:55 Plt Count 289 10^3/uL (130-400) 08/15/20 10:55 MPV 8.9 fL (8.0-11.0) 08/15/20 10:55 COVID-19 Source Nasal/Nares 08/15/20 11:54 SARS-CoV-2 (PCR) Negative (Negative) 08/15/20 11:54 Patient ABO/Rh O Positive 08/15/20 10:55 Antibody Screen NEGATIVE 08/15/20 10:55 Subjective Interval history since last seen: Patient seen this afternoon. Flank pain improved. Contractions more uncomfortable. Pressure increased. Baby moving and active. Sterile vaginal exam confirmed cervix 2 to 3 cm 70%, -2 station, intact. Okay for Pitocin augmentation Results Hemoglobin/Hematocrit: Hgb 11.8 g/dL (11.2-15.7) 08/15/20 10:55 Hct 35.7 % (36.0-46.0) L 08/15/20 10:55 Abnormal Lab Findings: Abnormal Labs 08/15/20 10:55 Hct 35.7 L
--- NOTE | 2020-08-15 16:04 | W.PM.OBHPL1 ---
Date of service: 08/15/20 Time of Service: 16:05 OB-HPI Labor/Delivery History of Present Illness Reason for Visit: Post Dates Chief Complaint: Scheduled Induction of Labor (Postdates, right flank pain) Indication for Induction: Post Date and Other (Right flank pain with history of renal calculus); Other (Patient has postdates and significant right flank with history of right renal calculus). CLAUDIO Calculator Estimated Delivery Date Method Current WG Current Estimate 08/09/20 LMP (Certain) 40w 6d Other Estimates 08/12/20 Ultrasound #1 40w 3d History of Present Expected Delivery Route/Plan FOB Gucci Heart Specific Issues/Plan Low risk x3 Family h/o Thalasseima (pt had w/u w/ last & NEG) Declines all optional labs declination signed. Elects MD care 06/15/20. Has agreed that she and will get COVID vaccine. Review of Systems All systems reviewed & are unremarkable except as noted in HPI and below Constitutional Constitutional: Reports poor appetite Comments: Irregular contractions. Right flank pain. Eyes Eyes: Reports system reviewed and no additional complaints, except as documented Cardiovascular Cardiovascular: Reports system reviewed and no additional complaints, except as documented and Denies dyspnea Respiratory Respiratory: Denies chest congestion, Denies cough and Denies dyspnea Gastrointestinal Gastrointestinal: Reports as per HPI, Denies diarrhea, Denies nausea and Denies vomiting Genitourinary Genitourinary: Reports as per HPI, Reports hematuria and Reports flank pain (Right) Neurologic Neurologic: Reports system reviewed and no additional complaints, except as documented Psychiatric Psychiatric: Reports system reviewed and no additional complaints, except as documented PFSH Medical History Gallbladder pain Hx of ovarian cyst Surgical History S/P lumpectomy, left breast Family History Father Hypertension Social History Smoking/Tobacco Use Status: Never Second Hand Exposure: No Smoking risk assessment performed?: Yes Alcohol Intake: former Substance use type: does not use Adopted: No Caregiver/Support person: No Foster care: No Household members: spouse Number of Children: 0 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 Date GA/Weeks # Outcome Route Wgt Sex Labor Lgth Anesthesia Location Prov Complic 05/29/18 41 No Successful vaginal 7 lb [address] soliman Delivery Date: 05/29/18 iol for post dates. w/o c/o. LELOJOSE,KHARI Meds Allergies and Home Medications Allergies Allergy/AdvReac Type Severity Reaction Status Date / Time No Known Allergies Allergy Verified 08/03/20 14:18 Home Medications Medication Instructions Recorded Confirmed Type prenat.vits,terrell,[id number] 1 tab PO DAILY 11/05/17 08/15/20 History ondansetron HCl 8 mg tablet 8 mg PO Q8H PRN #30 tab 06/02/20 08/15/20 Rx acetaminophen 325 mg capsule 650 mg PO ONCE PRN cap 07/11/20 08/15/20 History diphenhydramine HCl 25 mg capsule 25 mg PO QHS 07/11/20 08/15/20 History Exam Physical Exam Vital signs: Temp Pulse Resp BP 97.9 F 76 16 118/68 08/15/20 14:41 08/15/20 14:40 08/15/20 14:41 08/15/20 14:40 Detailed Labor and Delivery Exam Dilation: 3 Effacement (%): 70 station: -2 Position: OA Cervix position: mid Consistency: soft Jackson Score: Cervical Points Exam 0 1 2 3 Dilation Closed 1-2cm 3-4 cm 5-6cm Effacement 0-30% 40-50% 60-70% 80% Consistency Firm Medium Soft Station -3 -2 -1,0 +1,+2 Position Posterior Mid Anterior JACKSON Score(Cervical Ripeness Score): 8 Amniotic Membrane Status: Intact Contraction Frequency(min): 5 Contraction Duration(sec): 60 Contraction Intensity: Moderate Fetus A Heart Rate Baseline: 135 Monitor Accelerations: Present Monitor Decelerations: None Variability: Moderate (6-25 BPM) Presentation: Cephalic Categories: Category I Est. Weight: 7 lb 6 oz HEENT Exam HEENT Exam: Normal Neck Exam Neck Exam: Normal Respiratory Exam Respiratory Exam: Normal Cardiovascular Exam Cardiovascular Exam: Normal Exam Exam: Normal (Pelvis adequate) Detailed Extremities Exam Extremities: Absent cyanosis, clubbing and edema Neurological Exam Neurological Exam: Normal DetailedPsychiatric Exam Psychiatric: Present normal affect and good judgment Results Results Group Beta Strep: Negative Blood Type: O+ Rubella Status: Immune Varicella Immunity: Immune Abnormal Lab Findings: Abnormal Labs 08/15/20 10:55 Hct 35.7 L Risk Assessment Risk for Shoulder Dystocia Historical/Initial OB: NEGATIVE FOR: Pelvic Abnormality, Pre- BMI>30, Previous Shoulder Dystocia or Previous Macrosomia Increased Risk?: No Counselin01/28/20 IOB low risk al Delivery Plan @ 36wks: KJ Delivery Plan @ 40 wks: KJ Risk for Pre-Eclampsia Daily Dose ASA Indicated: No Date Initiated/Initials: 01/28/20 al Yes, if one or more: NEGATIVE FOR: Hx Pre-E/Gest HTN, Chronic HTN, Multiple Gestation, Pre-gestational DM, Renal Disease, Systemic Lupus or APA Syndrome Yes, if 2 or more: NEGATIVE FOR: Nulliparity, Age>= 35 yrs, >10yr btwn pregnancies, BMI>30, ethinicty, Mother/Sister w/ Pre-E or Previous IUGR Risk for Post- Hemorrhage Initial: NEGATIVE FOR: Multiple Gestation, Previous PPH, Known Clotting Deficiency, Grand Multiparity or Anticoagulation At Risk?: No Counseled re: Active Management: Yes Date/Initials: 07/17/2020 she is not, 08/11/2020 Risks Reviewed Risks Reviewed Upon Admission: Yes
[2020-08-15] MEDS: Oxytocin/Normal Saline 30 UNIT/500 ML BAG 1 UNITS IV (16:18)
--- NOTE | 2020-08-15 17:52 | W.PM.OBNL1 ---
Date of service: 08/15/20 Time of Service: 17:52 Informed Consent Informed Consent: Other (Cervical ripening) Assessment and Plan Assessment and plan (1) Post-dates : Status: Acute Assessment and plan: OK for epidural. Continue pitocin augmentation. Will AROM when more comfortable (2) Right flank pain: Status: Acute Assessment and plan: better after pain meds, anticipate improvemnt post delivery Objective Abnormal lab results 08/15/20 Range/Units 10:55 Hct 35.7 L (36.0-46.0) % Temp Pulse Resp BP Pulse Ox 98.1 F 77 16 114/72 98 08/15/20 16:35 08/15/20 16:35 08/15/20 16:35 08/15/20 16:35 08/15/20 16:35 Laboratory Results WBC 9.29 10^3/uL (4.4-10.8) 08/15/20 10:55 RBC 4.18 10^6/uL (3.93-5.22) 08/15/20 10:55 Hgb 11.8 g/dL (11.2-15.7) 08/15/20 10:55 Hct 35.7 % (36.0-46.0) L 08/15/20 10:55 MCV 85.4 fL (80-95) 08/15/20 10:55 MCH 28.2 pg (27.0-33.0) 08/15/20 10:55 MCHC 33.1 % (32.0-36.0) 08/15/20 10:55 RDW 13.4 % (11.7-14.6) 08/15/20 10:55 Plt Count 289 10^3/uL (130-400) 08/15/20 10:55 MPV 8.9 fL (8.0-11.0) 08/15/20 10:55 COVID-19 Source Nasal/Nares 08/15/20 11:54 SARS-CoV-2 (PCR) Negative (Negative) 08/15/20 11:54 Patient ABO/Rh O Positive 08/15/20 10:55 Antibody Screen NEGATIVE 08/15/20 10:55 Vital Signs Reviewed: Yes Objective Narrative Objective Narrative: SVE 4-5, 70%, -1 Subjective Interval history since last seen: More pain and pressure. Contractions are regular. Pitocin at 4. Desires epidural. Anesthesia notified Results Hemoglobin/Hematocrit: Hgb 11.8 g/dL (11.2-15.7) 08/15/20 10:55 Hct 35.7 % (36.0-46.0) L 08/15/20 10:55 Abnormal Lab Findings: Abnormal Labs 08/15/20 10:55 Hct 35.7 L
[2020-08-15] MEDS: Lactated Ringers 1,000 ML 125 ML IV (18:04)
[2020-08-15] MEDS: FentaNYL/ROPIvacaine 2 mcg/ml and 0.1% 200 ML CADD Cassette EP (18:18)
--- NOTE | 2020-08-15 18:18 | ANES.NEUR_ITS ---
Epidural/Spinal Catheter Date Performed: 08/15/20 Procedure Start: 18:52 Procedure Stop: 19:03 Requesting Provider: Vanda Meyers Procedure Location: Obstetrics (304) Reason Performed: Labor Epidural Standard Monitors Applied: ECG, Blood Pressure and SpO2 Patient Position: Sitting Sedation Given (Indicate Dose Given): No Sedation given Patient Mental Status: Awake Sterility: Hand Hygiene, Surgical Cap, Surgical Mask, Sterile Gloves, Sterile Drape/Sheet and Chlorhexidine Procedure Location: L4-L5 Interspace Epidural Needle: Tuohy 17 Guage Needle Length: 3.5 Inch Needle Approach: Midline Epidural Procedure: Skin Prepped, Sterile Drape Placed, 1% Lidocaine to skin and subcutaneous tissue with 25G needle, Tuohy Needle placed, ERIK to Saline Used, Epidural Catheter Placed and Negative CSF Flow Catheter Placed?: Catheter Placed Test Dose (Indicate Dose Given): 5ml 1.5% Lidocaine with 1:200K Epinephrine Given and Negative Test Dose Loss of Resistance Depth (cm): 9 Catheter depth at skin (cm): 15 Dressing: Sorbaview Dressing Placed Epidural Provider Bolus (Indicate Dose Given): Total Ropivacaine 0.1% with Fentanyl 2mcg/ml Given from pump (ml) Dose:: 7 ml Additives (Indicate Dose Given ): None Infusion Medication: Medication Infusion Began Medication Infusion: Ropivacaine 0.1% with Fentanyl 2mcg/ml Maintenance Infusion Rate (ml/h our): 10 PCEA Bolus Dose (ml): 5 Block Level: T10 Paresthesia: Left (parasthesia noted on placement of catheter. Recurrent with every advancement. Paused and removed needle and catheter. To reattempt.) Paresthesia Duration: Transient and Right (Right sided with placement of catheter. Earlier than previous left placement. Able to remove and reposition needle. Parasthesia again present but better than initial attempt. Not persistent.) Paresthesia Duration: Transient Ultrasound: Not Used Number of Attempts (See previous attempts in note section): 2 Procedure Tolerated: Patient tolerated well Procedure Outcome: Successful Performed By: Woodrow Schaefer
--- NOTE | 2020-08-15 18:18 | W.ANESPRE ---
General Info Date of Service Date Performed: 08/15/20 Height: 5 ft 4 in Weight: 72.575 kg Body Mass Index (BMI): 27.4 Meds Allergies and Home Medications Allergies Allergy/AdvReac Type Severity Reaction Status Date / Time No Known Allergies Allergy Verified 08/03/20 14:18 Home Medication Medication Instructions Recorded prenat.vits,terrell,[id number] 1 tab PO DAILY 11/05/17 ondansetron HCl 8 mg tablet 8 mg PO Q8H PRN #30 tab 06/02/20 acetaminophen 325 mg capsule 650 mg PO ONCE PRN cap 07/11/20 diphenhydramine HCl 25 mg capsule 25 mg PO QHS 07/11/20 Current Visit Medications: Current Medications Generic Name Dose Route Start Last Admin Trade Name Freq PRN Reason Stop Dose Admin Bupivacaine HCl 0 ml 08/15/20 18:15 Bupivacaine 0.25% Pres-Free 10 Ml Vial EP 08/15/20 18:16 NOW ONE Diphenhydramine HCl 25 mg 08/15/20 18:15 Diphenhydramine 50 Mg/Ml Vial IVP Q6H PRN PRN Persistent pruritis face/trunk Ephedrine Sulfate 5 mg 08/15/20 18:15 Ephedrine 50 Mg/Ml Vial IVP DIRECTED PRN Fentanyl 0 mcg 08/15/20 18:15 Fentanyl 100 Mcg/2 Ml Vial EP 08/15/20 18:16 NOW ONE Fentanyl/Ropivacaine 200 ml 08/15/20 18:15 Fentanyl/Ropivacaine 2 Mcg/Ml And 0.1% 200 Ml [place] EP DIRECTED KAI Fentanyl/Ropivacaine 200 ml 08/15/20 18:15 Fentanyl/Ropivacaine 2 Mcg/Ml And 0.1% 200 Ml Cadd [place]ette EP DIRECTED KAI Hydromorphone HCl 1 mg 08/15/20 14:05 08/15/20 14:33 Hydromorphone 2 Mg/Ml Vial IVP 1 mg Q4H PRN PRN Administration Ringer's Solution 1,000 mls @ 200 mls/hr 08/15/20 10:45 IV INFUSION KAI Sodium Chloride 500 mls @ 0 mls/hr 08/15/20 10:41 Saline 500ml Bag IV PRN PRN As Directed Ringer's Solution 1,000 mls @ 125 mls/hr 08/15/20 14:15 08/15/20 18:04 IV 125 mls/hr INFUSION KAI Administration Oxytocin/Sodium Chloride 30 unit in 500 mls @ 1 mls/hr 08/15/20 16:15 08/15/20 18:05 Pitocin/Normal Saline IV 4 milliunits/min INFUSION KAI 4 mls/hr Titration Protocol 1 MILLIUNITS/MIN Ringer's Solution 500 mls @ 500 mls/hr 08/15/20 18:15 IV 08/15/20 19:14 BOLUS ONE Ringer's Solution 250 mls @ 500 mls/hr 08/15/20 18:15 IV 08/15/20 18:44 BOLUS ONE Naloxone HCl 2 mg/ Sodium 500 mls @ 9.072 mls/hr 08/15/20 18:15 Chloride IV INFUSION PRN pruritis 0.5 MCG/KG/HR Nalbuphine HCl 5 mg/ Sodium 50.5 mls @ 100 mls/hr 08/15/20 18:15 Chloride IVPB Q3H PRN PRN Pruritis IV Miscellaneous Supplies 1 each 08/15/20 10:45 Iv Access IV DIRECTED [facility] Miscellaneous 0 each 08/15/20 18:15 Patch Removal TD 08/15/20 18:16 DIRECTED ONE Naloxone HCl 0 mg 08/15/20 18:15 Naloxone 0.4 Mg/Ml Vial IVP DIRECTED PRN Naloxone HCl 0.04 mg 08/15/20 18:15 Naloxone 0.4 Mg/Ml Vial IVP PRN PRN PRURITIS Ondansetron HCl 4 mg 08/15/20 18:15 Ondansetron 4 Mg/2 Ml Vial IVP Q6H PRN PRN Nausea Scopolamine HBr 1.5 mg 08/15/20 18:15 Scopolamine 1 Mg/3 Days Patch TD PRN PRN Sodium Chloride 0 ml 08/15/20 10:41 Normal Saline Flush 10 Ml Syr IVP PRN PRN Terbutaline Sulfate 0.25 mg 08/15/20 10:41 Terbutaline 1 Mg/Ml Vial SC PRN PRN Zolpidem Tartrate 10 mg 08/15/20 21:00 Zolpidem 5 Mg Tab PO 08/16/20 06:00 2100 [facility] PFSH Active Problems Active Problems: Problem Status Onset Code Small for gestational age fetus Encounter for supervision of other normal , third trimester Z34.83 Kidney stones N20.0 Fluid overload E87.70 Vaginal delivery O80 Post-dates O48.0 Right flank pain R10.9 Z34.90 Medical History Medical History Gallbladder pain Hx of ovarian cyst Surgical History Surgical History S/P lumpectomy, left breast Tobacco Smoking/Tobacco Use Status: Never Second hand exposure: No Alcohol Alcohol Intake: former Substance Use Substance use type: does not use Prental History History 2 Para 1 Hx # Term Pregnancies 1 Multiple births 0 Hx # Pregnancies 0 Ectopic pregnancies 0 AB induced 0 Hx Number of Living Children 1 AB spontaneous 0 Past Pregnancies Del. Date GA/Weeks # Outcome Route Wgt Sex Labor Lgth Anesthesia Location Prov Complic 05/29/18 41 No Successful vaginal 3458.[address] soliman Delivery Date: 05/29/18 iol for post dates. w/o c/o. KHARI BENSON Vital Signs and Lab Results Vital Signs Most Recent Vital Signs in EMR: Most Recent Vital Signs Temp Pulse Resp BP Pulse Ox 36.7 C 77 16 114/72 98 08/15/20 16:35 08/15/20 16:35 08/15/20 16:35 08/15/20 16:35 08/15/20 16:35 Lab Results Result Diagrams: 08/15/20 10:55 Blood Type / Crossmatch: Patient ABO/Rh O Positive 08/15/20 10:55 08/15/20 Antibody Screen NEGATIVE 08/15/20 10:55 08/15/20 Complete Blood Count: White Blood Count 9.29 10^3/uL (4.4-10.8) 08/15/20 10:55 08/15/20 Red Blood Count 4.18 10^6/uL (3.93-5.22) 08/15/20 10:55 08/15/20 Hemoglobin 11.8 g/dL (11.2-15.7) 08/15/20 10:55 08/15/20 Hematocrit 35.7 % (36.0-46.0) L 08/15/20 10:55 08/15/20 Platelet Count 289 10^3/uL (130-400) 08/15/20 10:55 08/15/20 Complete Metabolic Panel: No Data to Display Liver Function Panel: No Data to Display Coagulation Panel: No Data to Display Cardiac Panel: No Data to Display Arterial Blood Gas: No Data to Display Venous Blood Gas: No Data to Display Pancreas Panel: No Data to Display Thyroid Panel: No Data to Display Infectious Disease: Coronavirus (COVID-19)(PCR) Negative (Negative) 08/15/20 11:54 08/15/20 Coronavirus 2019 Source Nasal/Nares 08/15/20 11:54 08/15/20 Blood Cultures: No Data to Display Toxicology Panel: No Data to Display Panel: No Data to Display Anesthesia Assessment and Plan Anesthesia History Personal History: No History of Anesthesia Complications Family History: No Family History of Anesthesia Complications Exercise Tolerance Exercise Tolerance: Metabolic Equivalents>4 Pertinent Negatives Pertinent Negatives: No Symptoms of GERD Cardiac & Pulmonary Exam Cardiac Exam: Normal S1/S2 Heart Sounds Pulmonary Exam: Clear Bilateral Breath Sounds Airway Exam Known Difficult Airway: No Mallampati Class: 2 Mouth Opening: Normal (> 3cm) Thyromental Distance: Greater than 3 cm Neck Range of Motion: Full ROM Neck Circumference: Normal Teeth Condition: Normal Dentition ASA Classification ASA Score: ASA 2 Emergency Case?: No NPO Status NPO Status: NPO Clears >2 hours, Solids >8 hours Status Status: Confirmed Anesthesia Plan Resuscitation Status: Full Code Anesthesia Technique: Epidural Anesthesia Airway Planned: Natural Airway Pain Management: Surgeon and patient request nerve block Monitors Used: Standard Monitors
[2020-08-15] MEDS: Oxytocin/Normal Saline 30 UNIT/500 ML BAG 334 UNITS IV (20:15)
[2020-08-15] MEDS: Ibuprofen 600 MG TAB PO (20:30)
--- NOTE | 2020-08-15 20:36 | W.OBDELIVERY ---
Date of service: 08/15/20 Time of Service: 20:36 OB Labor/ Delivery Information Baby A Delivery Delivery Method: Spontaneaous Presentation: Cephalic Cephalic Position: Vertex Vertex Position: Left Occipital Posterior Cord Description-Baby A: 3 Vessels Amniotic Fluid: Clear Estimated Blood Loss: 150 Delivery Outcome: Liveborn Transferred: Remains with Mother Providers Doctor: Vanda Meyers Nurse: Jessica Neal Nurse: Lisset Caballero Labor/Delivery Information Number of Babies in Womb: 1 Group Beta Strep: Negative Antibiotics Administered: No Rubella Status: Immune Blood Type: O+ Varicella Immunity: Immune Maternal Complications: None Stages of Labor Onset of Labor Date: 08/15/20 Complete Dilatation Date: 08/15/20 Complete Dilatation Time: 19:49 ROM Baby A: 08/15/20 ROM Baby A: 19:50 ROM Total Time- Baby A: [id number] Infant Delivery Date-Baby A: 08/15/20 Delivery Time-Baby A: 20:06 Labor Stage 2 Duration: 17 minutes Placenta Delivery Date-Baby A: 08/15/20 Placenta Delivery Time-Baby A: 20:13 Labor-Stage 3 Duration: 7 minutes Placenta Status: Delivered Baby A Gender: Female Gestational Status: Term (39-41.6 wks) Gestational Age in Weeks/Days: 40 Weeks and 6 Days Score-1 Minute Interval(Baby A) Heart Rate-1 minute: 100 BPM or Greater Score-5 Minute Interval(Baby A) Heart Rate- 5 minute: 100 BPM or Greater Respiratory Effort-5 minute: Spontaneous/Strong Cry Muscle Tone-5 minute: Active Movement Reflex Response-5 minute: Prompt Response Color-5 minute: Bluish Hands or Feet Total Score- 5 minute: 9
[2020-08-16] MEDS: Acetaminophen 325 MG TAB 650 MG PO ×5 (00:01→20:00)
[2020-08-16] MEDS: Ibuprofen 600 MG TAB PO ×3 (03:25→14:44)
[2020-08-16 06:41] LABS: HCT 30.9 % (36.0-46.0); HGB 10.2 g/dL (11.2-15.7); MCV 84.9 fL (80-95); MPV 9.3 fL (8.0-11.0); Platelet Count 253 10^3/uL (130-400); RBC 3.64 10^6/uL (3.93-5.22); RDW 13.3 % (11.7-14.6); RDW-SD 41.7 fL; WBC 12.41 10^3/uL (4.4-10.8)
[2020-08-16] MEDS: Normal Saline Flush 10 ML SYR IVP (06:41)
[2020-08-16] MEDS: HYDROmorphone 2 MG/ML VIAL 1 MG IVP (06:41)
[2020-08-16 08:34] VITALS: BP 113/70; PULSE 71; RESP 17; TEMP 37.1; O2SAT 97
--- NOTE | 2020-08-16 09:03 | W.PM.OBPNV1 ---
Date of service: 08/16/20 Time of Service: 09:03 Assessment and Plan Assessment and plan (1) Normal spontaneous vaginal delivery: Status: Acute Assessment and plan: Patient is day #1 status post normal spontaneous vaginal delivery. She had labor induction due to right flank pain and history of kidney stones. Her labor was uncomplicated. Her right flank pain has significantly improved since the time of delivery. Anticipation of her be for discharge home. Imaging studies if she continues with right flank pain will be ordered as an outpatient with urologic follow-up. (2) Kidney stones: Status: Chronic Subjective Subjective Interval history: Patient seen and examined this morning. She is feeling significantly better. Her right flank pain has significantly diminished. She does have some crampiness with breast-feeding. Lochia is physiologic. She is breast-feeding without difficulty Patient comments: No complaints [place] baby status: Doing well, Nursing well and Strong Bonding Observed [place] feeding status: Exclusively breast feeding Exam Physical Exam Vital signs: Temp Pulse Resp BP Pulse Ox 98.8 F 71 17 113/70 97 08/16/20 08:34 08/16/20 08:34 08/16/20 08:34 08/16/20 08:34 08/16/20 08:34 Constitutional Constitutional: no acute distress HEENT Exam HEENT Exam: Normal Detailed Neck Exam Neck exam general surgery: Present supple Respiratory Exam Respiratory Exam: Normal Cardiovascular Exam Cardiovascular Exam: Normal Abdominal Exam Comments: Soft and nontender Fundal Exam Fundus: Below Umbilicus and Firm Extremities Exam Extremity Exam: Normal and Edema (1+, bilateral); negative Calf Tenderness Skin Exam Skin Exam: Normal Neurological Exam Neurological Exam: Normal Psychiatric Exam Psychiatric Exam: Normal Results Hemoglobin/Hematocrit: Hgb 10.2 g/dL (11.2-15.7) L 08/16/20 06:06 Hct 30.9 % (36.0-46.0) L 08/16/20 06:06 Abnormal Lab Findings: Abnormal Labs 08/15/20 08/16/20 10:55 06:06 WBC 12.41 H D RBC 3.64 L Hgb 10.2 L Hct 35.7 L 30.9 L
--- NOTE | 2020-08-16 09:08 | DSE_ITS ---
Date of service: 08/16/20 Time of Service: 09:08 DS: Diagnosis Discharge Diagnosis (1) Normal spontaneous vaginal delivery: Status: Acute (2) Kidney stones: Status: Chronic Discharge Plan Disposition Patient Disposition: HOME Condition: Good Discharge Details Reason For Visit: Post Dates Admit Date/Time: 08/15/20 10:00 Admit Provider: Vanda Meyers Attending Provider: Vanda Meyers Primary Care Provider: EarlineLenora vieira [facility] Hospital Course: Patient is a 30-year-old 2 para 1 who was seen for nonstress testing yesterday. She has been having worsening right flank pain with history of renal calculus in the past. She is at 40 weeks and 5 days gestation with a category 1 strip. In light of her worsening flank pain and the fact that she is postdates, decision was made for labor induction. She received o 1 dose f intravaginal misoprostol for cervical ripening. Home Meds and New Rx's Prescriptions: New ibuprofen 800 mg tablet 800 mg PO Q8H Qty: 30 RF: 1 No Action prenat.vits,terrell,upr-birq-jltiz tablet 1 tab PO DAILY RF: 0 ondansetron HCl 8 mg tablet 8 mg PO Q8H PRN (Reason: nausea and vomiting) Qty: 30 RF: 0 acetaminophen [Tylenol] 325 mg capsule 650 mg PO ONCE PRNRF: 0 diphenhydramine HCl [Benadryl] 25 mg capsule 25 mg PO QHS RF: 0 Discharge Instructions Stand Alone Forms: BC Post Vaginal Deliver Activity:: Pelvic rest for 6 weeks Equipment/Supplies:: No Equipment Needed Diet:: As Tolerated Discharge Orders Discharge Orders: Discharge Order (Routine); Ordered 08/16/20 Ordered By: Vanda Meyers OB:DS Summary Summary Vaginal Delivery Method: Spontaneaous Episiotomy Description: None Laceration Description: Other Laceration Extension: Second Degree Contraception Discussed Contraception Discussed: Yes (Natural family planning), [place] Gender-Baby A: Female weight: 8 lb 0.75 oz Status at Discharge Functional status at discharge: independent ambulation Overall status at discharge: patient is back to baseline Mental Status: mental status grossly normal Speech and Movement: speech and movement normal Mood: congruent mood Affect: normal affect Exam Physical Exam Vital signs: Temp Pulse Resp BP Pulse Ox 98.8 F 71 17 113/70 97 08/16/20 08:34 08/16/20 08:34 08/16/20 08:34 08/16/20 08:34 08/16/20 08:34 Constitutional Comments: See physical exam from progress note dated 08/16/2020 [facility] Medical History Gallbladder pain Hx of ovarian cyst Normal spontaneous vaginal delivery Surgical History S/P lumpectomy, left breast Family History Father Hypertension Social History Smoking/Tobacco Use Status: Never Second Hand Exposure: No Smoking risk assessment performed?: Yes Alcohol Intake: former Substance use type: does not use Adopted: No Caregiver/Support person: No Foster care: No Household members: spouse Number of Children: 0 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 Date GA/Weeks # Outcome Route Wgt Sex Labor Lgth Anesthes ia Location [facility] 05/29/18 41 No Successful vaginal 7 lb [address] [facility]iman Delivery Date: 05/29/18 iol for post dates. w/o c/o. KHARI BENSON DS: Data Vitals/I&O Vitals and I&O: Vital Signs Temperature 98.8 F 08/16/20 08:34 Temperature Source Oral 08/15/20 12:50 Pulse 71 08/16/20 08:34 Pulse Rhythm Regular 08/16/20 08:34 Respiratory Rate 17 08/16/20 08:34 Blood Pressure 113/70 08/16/20 08:34 Blood Pressure Mean 84 08/16/20 08:34 Pulse Oximetry 97 08/16/20 08:34 Oxygen Delivery Method Room Air 08/15/20 12:50 Oxygen Flow Rate 0 08/15/20 12:50 Pain Level 0 08/16/20 08:34 Comment 08/15/20 14:41 Intake & Output 08/15/20 08/15/20 08/16/20 11:59 23:59 11:59 Intake Total 3672.983 / 3672.983 Output Total 2300 / 2300 1000 / 1000 Balance 1372.983 / 1372.983 -1000 / -1000 Weight 160 lb 160 lb Intake: IV 2302.983 / 2302.983 Oral 1370 / 1370 Output: Urine 2150 / 2150 1000 / 1000 Output, Blood Loss 150 / 150 Other: Urine Color Pale Urine Appearance Clear Urine Odor None Voiding Methods Toilet Data Completed and Pending Labs on day of discharge: Labs from last 24 hours 08/16/20 08/15/20 08/15/20 06:06 11:54 10:55 WBC 12.41 H D RBC 3.64 L Hgb 10.2 L Hct 30.9 L MCV 84.9 MCH 28.0 MCHC 33.0 RDW 13.3 Plt Count 253 MPV 9.3 COVID-19 Source Nasal/Nares SARS-CoV-2 (PCR) Negative Patient ABO/Rh O Positive Antibody Screen NEGATIVE 08/15/20 10:55 WBC 9.29 RBC 4.18 Hgb 11.8 Hct 35.7 L MCV 85.4 MCH 28.2 MCHC 33.1 RDW 13.4 Plt Count 289 MPV 8.9 COVID-19 Source SARS-CoV-2 (PCR) Patient ABO/Rh Antibody Screen
--- NOTE | 2020-08-16 10:56 | W.OBNST ---
Date of service: 08/16/20 Time of Service: 10:56 NST Evaluation Reason for NST Reasons for Nonstress Test: POSTDATES Gestational Age Gestational Age in Weeks and Days: 40 Weeks and 6Days Test and Monitor Explained Test/Monitor Explained: Test Explained, Monitor Explained and Patient Verbalized Understanding Vital Signs Blood Pressure: 135/84 Pulse: 97 Temperature: 98 F Urine Results Urine Protein: Negative Urine Ketones: Negative Urine Glucose: Negative Urine Blood: Positive NST Information Date on Monitor: 08/15/20 Time on Monitor: 09:09 Date off Monitor: 08/15/20 Time off Monitor: 09:57 Total Time on Monitor: 48 NST Interventions: PO Hydration NST Evaluation Patient States Movement: Present FHR Baseline: 125 Variability: Moderate 6-25 bpm Accelerations: 15x15 Decelerations: None NST Results: Reactive Note NST Note Note: Reactive, category 1 strip NST Reviewed and Verified by: Vanda Meyers
[2020-08-16 10:57] VITALS: BP 135/84; PULSE 97; TEMP 36.6
--- NOTE | 2020-08-16 12:10 | W.ANESPOSTOP ---
Postoperative Evaluation Date, Time and Location Date Performed: 08/16/20 Time Performed: 11:55 Patient Location: Obstetrics Vital Signs Most Recent Imported Vital Signs: Most Recent Vital Signs Temp Pulse Resp BP Pulse Ox 37.1 C 71 17 113/70 97 08/16/20 08:34 08/16/20 08:34 08/16/20 08:34 08/16/20 08:34 08/16/20 08:34 Pain Score Most Recent Pain Score: Most Recent Pain Score Pain Level [Right Back] 0 08/16/20 08:34 Pain Level 0 08/16/20 10:13 Assessment Mental Status: Awake (Alert & Oriented to Patient Baseline) Airway and Respiratory Function: Patent airway with normal (patient baseline) respiratory exam Cardiovascular Function: Hemodynamically Stable Hydration Status: Adequately Hydrated Nausea & Vomiting: No Nausea or Vomiting Pain: Pt. Denies Any Pain Peripheral Nerve Block: Patient did not receive a nerve block
[2020-08-16 16:15] VITALS: BP 114/71; PULSE 85; RESP 18; TEMP 36.7; O2SAT 98
[2020-08-16 19:45] VITALS: BP 110/68; PULSE 68; RESP 15; TEMP 36.6; O2SAT 98
== END 2020-08-15 10:25 | disposition home or self-care (01) | DRG 807 ==
LOC: OBS 10:54 → BCD 08-25 15:43 → OBS 08-25 15:44
PROVIDERS: Admitting Provider Obstetrics & Gynecology; PCP Family Medicine; Visit Provider Obstetrics & Gynecology
DX: O48.0 Post-term pregnancy (principal); Z37.0 Single live birth; O75.89 Other specified complications of labor and delivery; Z3A.40 40 weeks gestation of pregnancy; N20.0 Calculus of kidney; Z20.822 Contact with and (suspected) exposure to COVID-19
CPT/HCPCS: 36415; 85027; 86850; 86900; 86901; 87635; 59025; J3490

== ENCOUNTER 2021-04-02 16:54 | Outpatient (REF) | payer MEDICAID, SELFPAY ==
[2021-04-02 15:39] LABS: Abs Immature Grans 0.02 10^3/uL (0.0-0.06); Absolute Basophil Count 0.04 10^3/uL (0.0-0.2); Absolute Eosinophil Count 0.12 10^3/uL (0.0-0.7); Absolute Lymphocyte Count 1.95 10^3/uL (1.2-3.4); Absolute Monocyte Count 0.51 10^3/uL (0.1-0.8); Absolute Neutrophil Count 4.15 10^3/uL (1.2-6.7); Basophils % 0.6; Eosinophils % 1.8; HGB 14.3 g/dL (11.2-15.7); Immature Grans % 0.3; Lymphocytes % 28.7; MCH 28.4 pg (27.0-33.0); MCHC 33.3 % (32.0-36.0); MCV 85.5 fL (80-95); MPV 9.7 fL (8.0-11.0); Monocytes % 7.5; Neutrophils % 61.1; Nucleated RBC 0 %; Platelet Count 323 10^3/uL (130-400); RBC 5.03 10^6/uL (3.93-5.22); RDW-SD 37.5 fL; WBC 6.79 10^3/uL (4.4-10.8)
[2021-04-02 15:57] LABS: ALT 19 U/L (14-59); AST 11 U/L (15-37); Albumin 4.5 g/dL (3.4-5.0); Alkaline Phosphatase 103 U/L (46-116); Anion Gap 10.3 mmol/L (3-11); BUN 11 mg/dL (7-18); Bilirubin, Total 0.7 mg/dL (0.2-1.0); CO2 26.7 mmol/L (21.0-32.0); CREATININE 0.7 mg/dL (0.55-1.02); Calcium 9.7 mg/dL (8.5-10.1); Chloride 103 mmol/L (98-107); Glucose 79 mg/dL (74-106); Lipase 84 U/L (73-393); Potassium 4.3 mmol/L (3.5-5.1); Sodium 140 mmol/L (136-145); Total Protein 7.6 g/dL (6.4-8.2)
[2021-04-03 00:12] LABS: C Diff PCR Negative (Negative)
[2021-04-04 11:33] LABS: IgA 181 mg/dL (85-499); Interpretation (See Note); Tissue Transglutaminase IgA <1.2 U/mL (<4.0)
== END 2021-04-02 16:55 | disposition home or self-care (01) ==
LOC: NCHCN 16:54
PROVIDERS: PCP Family Medicine; Visit Provider Family Medicine
DX: R19.7 Diarrhea, unspecified (principal); R10.9 Unspecified abdominal pain
CPT/HCPCS: 80053; 82784; 83516; 83690; 87329; 87493; 83630; 85025; 87177; 87230

== ENCOUNTER 2021-04-11 01:01 | Outpatient (CLI) | payer MEDICAID, SELFPAY ==
--- NOTE | 2021-04-11 07:00 | DI.US_ITS ---
Exam(s) US ABDOMEN EXAM: US ABDOMEN INDICATION: DIARRHEA, R19.7; ABDOMINAL PAIN, R10.9 COMPARISON: US US OB VJ WEIGHT from 07/04/2020 TECHNIQUE: Ultrasound abdomen performed using standard protocol FINDINGS: Abdominal ultrasound was performed according to the usual protocol. The liver is normal in size and shape. No focal hepatic lesion seen. There is no evidence of cholelithiasis or biliary dilatation. No gallbladder wall thickening or peric holecystic fluid collection. Portal venous flow is hepatopetal. Pancreas appears intact as visualized. Spleen is unremarkable in appearance with no focal lesion. Kidneys are normal in size and shape. No renal mass, hydronephrosis, or nephrolithiasis. Abdominal aorta and IVC are of normal diameter as visualized, the mid to distal aorta is obscured by overlying bowel gas. IMPRESSION: Negative abdominal ultrasound .
== END 2021-04-11 01:21 ==
PROVIDERS: PCP Family Medicine; Visit Provider Family Medicine
DX: R10.9 Unspecified abdominal pain (principal); R19.7 Diarrhea, unspecified
CPT/HCPCS: 76700

== ENCOUNTER 2022-03-18 03:18 | Outpatient (CLI) | payer MEDICAID, SELFPAY ==
[2022-03-18 11:04] LABS: Abs Immature Grans 0.02 10^3/uL (0.0-0.06); Absolute Basophil Count 0.03 10^3/uL (0.0-0.2); Absolute Eosinophil Count 0.08 10^3/uL (0.0-0.7); Absolute Lymphocyte Count 1.52 10^3/uL (1.2-3.4); Absolute Monocyte Count 0.44 10^3/uL (0.1-0.8); Absolute Neutrophil Count 5.73 10^3/uL (1.2-6.7); Basophils % 0.4; HCT 38.6 % (36.0-46.0); HGB 13.1 g/dL (11.2-15.7); Immature Grans % 0.3; Lymphocytes % 19.4; MCH 28.5 pg (27.0-33.0); MCHC 33.9 % (32.0-36.0); MCV 84 fL (80-95); MPV 9.4 fL (8.0-11.0); Monocytes % 5.6; Neutrophils % 73.3; Platelet Count 318 10^3/uL (130-400); RBC 4.59 10^6/uL (3.93-5.22); RDW 12.4 % (11.7-14.6); RDW-SD 37.4 fL; WBC 7.82 10^3/uL (4.4-10.8)
[2022-03-19 10:10] LABS: Hepatitis B Surface Ag Negative (Negative)
[2022-03-19 10:35] LABS: Hepatitis C Ab w Rflx HCV PCR Negative (Negative)
[2022-03-19 10:46] LABS: HIV-1/2 Ag & Ab Screen Negative (Negative)
[2022-03-19 11:04] LABS: Varicella IgG Antibody Positive (See Note)
[2022-03-19 11:23] LABS: Rubella IgG Ab (UVM) Negative (See Note)
[2022-03-19 19:17] LABS: Syphilis IgG w/Reflex Nonreactive (Nonreactive)
== END 2022-03-18 03:19 | disposition home or self-care (01) ==
LOC: LBO 03:19
PROVIDERS: PCP Family Medicine; Visit Provider Advanced Practice Midwife
DX: Z34.91 Encounter for supervision of normal pregnancy, unspecified, first trimester (principal); Z3A.10 10 weeks gestation of pregnancy
CPT/HCPCS: 36415; 86787; 86803; 86850; 86900; 86901; 87340; 87389; 85025; 86762; 86780

== ENCOUNTER 2022-03-18 13:47 | Outpatient (REF) | payer MEDICAID, SELFPAY | END 2022-03-18 13:48 | disposition home or self-care (01) | LOC: LBN 13:47 | PROVIDERS: PCP Family Medicine; Visit Provider Advanced Practice Midwife | DX: Z34.91 Encounter for supervision of normal pregnancy, unspecified, first trimester (principal) | CPT/HCPCS: 87086 ==

== ENCOUNTER 2022-05-16 02:28 | Outpatient (CLI) | payer MEDICAID, SELFPAY ==
--- NOTE | 2022-05-16 06:30 | DI.US_ITS ---
Exam(s) US OB 2-3 TRIMESTER EXAM: US OB 2-3 TRIMESTER CLINICAL HISTORY: morphology,z34.92. TECHNIQUE: Transabdominal obstetrical ultrasound was performed. COMPARISON: US POCUS EXAM from 03/18/2022 FINDINGS: There is a single viable intrauterine gestation with cardiac activity identified-129 bpm. Amniotic fluid: There is a normal amount of amniotic fluid. Placental location: The placenta is anterior-grade 1,with no evidence of placenta previa.Distance fro m tip of the placenta to the internal cervical os 4 cm. ANATOMY: A 3 vessel umbilical cord is seen. A four-chamber cardiac view was obtained. Right and left ventricular outflow tracts were imaged. There are no obvious abnormalities of the spinal column evident. There is no obvious abnormal ity of the anterior abdominal wall. stomach and urinary bladder are identified and there is no evidence of hydronephrosis. No abnormalities of the upper lip region are identified. No evidence of choroid plexus cysts i n the brain. Dating parameters place this at approximately 19 weeks and 2 days gestational age. BPD measures 18 weeks and 5 days HC measures 18 weeks and 6 days AC measures 20 weeks and 6 days FL measures 18 weeks and 5 days Estimated weight is 310 gm-0 pounds-11 ounces Fetus is at the 72nd percentile on the Hadlock scale. IMPRESSION:: Single viable intrauterine gestation which is approximately 19 weeks and 2 days gestati onal age, implying an CLAUDIO of October 08, 2022.. There are no obvious anomalies evident on today's study. The placenta is anterior with no evidence of placenta previa. There is a normal amount of amniotic fluid. DATA REPOSITORY:
== END 2022-05-16 02:48 ==
LOC: DI 02:28
PROVIDERS: PCP Family Medicine; Visit Provider Advanced Practice Midwife
DX: Z34.92 Encounter for supervision of normal pregnancy, unspecified, second trimester (principal); Z3A.19 19 weeks gestation of pregnancy
CPT/HCPCS: 76805

== ENCOUNTER 2022-07-24 03:38 | Outpatient (CLI) | payer MEDICAID, SELFPAY ==
[2022-07-24 15:52] LABS: Glucose,1 Hr (Glucola) 110 mg/dL (80-140)
[2022-07-24 16:11] LABS: Abs Immature Grans 0.14 10^3/uL (0.0-0.06); Absolute Basophil Count 0.04 10^3/uL (0.0-0.2); Absolute Eosinophil Count 0.14 10^3/uL (0.0-0.7); Absolute Lymphocyte Count 1.86 10^3/uL (1.2-3.4); Absolute Monocyte Count 0.56 10^3/uL (0.1-0.8); Basophils % 0.4; Eosinophils % 1.3; HCT 33.3 % (36.0-46.0); HGB 11.3 g/dL (11.2-15.7); Immature Grans % 1.3; Lymphocytes % 16.9; MCH 29.3 pg (27.0-33.0); MCHC 33.9 % (32.0-36.0); MCV 86 fL (80-95); MPV 8.6 fL (8.0-11.0); Monocytes % 5.1; Platelet Count 285 10^3/uL (130-400); RBC 3.86 10^6/uL (3.93-5.22); RDW 13.4 % (11.7-14.6); RDW-SD 41.9 fL; WBC 11.01 10^3/uL (4.4-10.8)
[2022-07-24 16:13] LABS: Absolute Neutrophil Count 8.26 10^3/uL (1.2-6.7)
== END 2022-07-24 03:39 | disposition home or self-care (01) ==
LOC: LBO 03:38
PROVIDERS: PCP Family Medicine; Visit Provider Obstetrics & Gynecology
DX: Z34.90 Encounter for supervision of normal pregnancy, unspecified, unspecified trimester (principal)
CPT/HCPCS: 36415; 82950; 85025

== ENCOUNTER 2022-08-01 15:26 | Outpatient (CLI) | payer MEDICAID, SELFPAY ==
[2022-08-01 16:49] VITALS: BP 102/69; PULSE 81; TEMP 36.7
--- NOTE | 2022-08-01 17:37 | OBCE_ITS ---
Date of service: 08/01/22 Time of Service: 17:00 Assessment and Plan Assessment and plan (1) Back pain affecting : Status: Acute Assessment and plan: We discussed that her pain does not seem to be directly related to her . The baby and the placenta appear normal. I suspect musculoskeletal pain but what she is experiencing is not typical for so I suggest evaluation with her PCP tomorrow or at urgent care if she prefers to be seen tonight. She can try taking benadryl to see if that helps her sleep. History of Present Illness Narrative: Pt is here for evaluation of severe back pain. It is in her lower mid-back. It does not radiate down to her legs or around her belly. if anything it might radiate up from there. It is always in the same location. She says the pain started about a month ago. Initially it hurt her more while sitting and she thought it was sciatica. Over the past 4-5 days it has significantly worsened and she is having a hard time sleeping due to the pain and is unable to lift her toddler. She says it hurts in all positions now but at times it is worse such as when she moves her legs. She has tried tylenol and didn't feel like it helped so she stopped taking it. She has also tried heat and ice without significant relief. She denies bleeding, loss of fluid or unusual discharge. The baby is moving a lot and when it moves it often causes the pain to be worse. She denies diarrhea or constipation though the pain hurts more with BMs. She denies urinary sxms. Review of Systems Constitutional Constitutional: Reports system reviewed and no additional complaints, except as documented Gastrointestinal Gastrointestinal: Denies nausea and Denies vomiting Genitourinary Genitourinary: Reports system reviewed and no additional complaints, except as documented Musculoskeletal Comments: No regular contractions PFSH All Active Problems (Updated 08/01/22 @ 17:46 by Jazmyne Quiñonez MD) (Acute) Rubella non-immune status, antepartum (Acute) Back pain affecting (Acute) Medical History (Updated 08/01/22 @ 17:46 by Jazmyne Quiñonez MD) Gallbladder pain History of hydronephrosis History of kidney stones Hx of ovarian cyst Surgical History S/P lumpectomy, left breast Family History Father Hypertension Paternal Grandmother Breast cancer in her 30's from breast cancer Paternal Grandfather Colon cancer Maternal Aunt Cancer multiple myeloma Social History Smoking/Tobacco Use Status: Never Second Hand Exposure: No Smoking risk assessment performed?: Yes Alcohol Intake: former Substance use type: does not use Adopted: No Caregiver/Support person: No Foster care: No Household members: spouse Number of Children: 0 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 Date GA/Weeks # Preg Succ Route Wgt Sex Labor Lgth Anesth esia Location [facility] 05/29/18 41 No Yes vaginal 7 lb 10 oz Male 36 [address] [facility] 08/15/20 41 No Yes vaginal 8 lb 1 oz Female 10 regional [facility] J Delivery Date: 05/29/18 Last Updated by: Johnson Alexandre CNM iol for post dates. w/o c/o. Exam Const General: cooperative, healthy appearing, no acute distress (except with movement) and well groomed Orientation: alert, awake and oriented x3 HENMT Head: normal to inspection and normocephalic GI Other: No tenderness over her abdomen. No tenderness on either side of her back. Moderate tenderness right over the spine in the lower mid back region. Results Imaging Additional studies: POCUS: Normal appearing anterior placenta. Lots of movement. Visually normal fluid. No other obvious abnormalities.
--- NOTE | 2022-08-01 17:53 | W.OBNST ---
Date of service: 08/01/22 Time of Service: 17:00 NST Evaluation Reason for NST Reasons for Nonstress Test: OTHER, SEE COMMENT Reason for NST Other: back pain, rule out labor Gestational Age Gestational Age in Weeks and Days: 30 Weeks and 2Days Test and Monitor Explained Test/Monitor Explained: Test Explained, Monitor Explained and Patient Verbalized Understanding Vital Signs Blood Pressure: 102/69 Pulse: 81 Temperature: 98.1 F Urine Results Urine Protein: Negative Urine Ketones: Negative Urine Glucose: Negative Urine Blood: Negative NST Information Date on Monitor: 08/01/22 Time on Monitor: 15:30 Date off Monitor: 08/01/22 Time off Monitor: 16:45 Total Time on Monitor: 75 NST Interventions: PO Hydration Contraction Frequency: none NST Evaluation Patient States Movement: Present FHR Baseline: 130 Variability: Moderate 6-25 bpm Accelerations: 15x15 and 10x10 Decelerations: None NST Results: Reactive Note Ultrasound Done: Presentation Presentation Results: Vertex Coding for Presentation w/NST: Completed Exam and Other (placental evaluation - anterior, no abnormalities noted). NST Note NST Reviewed and Verified by: Jazmyne Quiñonez
[2022-08-01 17:54] VITALS: BP 102/69; PULSE 81; TEMP 36.7
== END 2022-08-01 17:20 ==
LOC: BCD 15:31 → OBS 16:39
PROVIDERS: PCP Family Medicine; Visit Provider Obstetrics & Gynecology
DX: O99.891 Other specified diseases and conditions complicating pregnancy (principal); M54.9 Dorsalgia, unspecified; O47.03 False labor before 37 completed weeks of gestation, third trimester
CPT/HCPCS: 59025

== ENCOUNTER 2022-09-12 09:37 | Outpatient (REF) | payer MEDICAID, SELFPAY ==
[2022-09-12 12:06] LABS: *AMPHETAMINES SCREEN URINE Negative (Negative); *BARBITURATES SCREEN URINE Negative (Negative); *BENZODIAZEPINES SCREEN URINE Negative (Negative); Cannabinoids THC Negative (Negative); Cocaine Screen,Urine Negative (Negative); METHADONE URINE SCREEN Negative (Negative); OPIATES URINE SCREEN Negative (Negative)
[2022-09-12 12:07] LABS: Tricyclic Antidepressants Negative (Negative)
[2022-09-18 12:47] LABS: Buprenorphine Negative ng/mL (Cutoff: 5.0)
== END 2022-09-12 09:38 | disposition home or self-care (01) ==
LOC: LBN 09:37
PROVIDERS: PCP Family Medicine; Visit Provider Obstetrics & Gynecology
DX: Z34.93 Encounter for supervision of normal pregnancy, unspecified, third trimester (principal); Z36.85 Encounter for antenatal screening for Streptococcus B; Z3A.36 36 weeks gestation of pregnancy
CPT/HCPCS: 80307; 80348; 87081

== ENCOUNTER 2022-10-06 01:57 | Inpatient (IN) | payer MEDICAID, SELFPAY ==
[2022-10-06] VITALS (114 sets, daily range): BP systolic 102–132; BP diastolic 55–77; PULSE 69–163; RESP 16–18; TEMP 36.4–36.8; O2SAT 89–100; BMI 26.2
--- NOTE | 2022-10-06 02:06 | HPE_ITS ---
Date of service: 10/06/22 Time of Service: 02:06 Assessment and Plan Assessment and plan (1) Normal labor: Status: Acute Assessment and plan: Will monitor and draw labs. Pt desires epidural. Expectant labor management. OB-HPI Labor/Delivery History of Present Illness Reason for Visit: labor Chief Complaint: Uterine Contractions. CLAUDIO Calculator Estimated Delivery Date Method Current WG Current Estimate 10/08/22 LMP (Certain) 39w 5d Other Estimates 10/11/22 Ultrasound #1 39w 2d History of Present Expected Delivery Route/Plan - FOB/ - [facility] Rubella non-immune, offer MMR IOl booked 10/10 @ 0800 Specific Issues/Plan 1. Declines cfDNA,CF, SMA, UDS 2. Prefers induction at 40 weeks 3. History of hydronephrosis 4. Back pain referred to PT for lumbar exercises Narrative: Pt woke with a larg gush of fluid in bed at 00:15. About 30-45min late she bega n to experience contractions. They are ~5-10min apart. No bleeding. She continues to leak fluid. She has not noticed the baby moving since waking. Review of Systems Constitutional Constitutional: Reports system reviewed and no additional complaints, except as documented Gastrointestinal Gastrointestinal: Denies nausea and Denies vomiting Genitourinary Genitourinary: Reports system reviewed and no additional complaints, except as documented Musculoskeletal Comments: No regular contractions PFSH All Active Problems (Updated 10/06/22 @ 02:13 by Jazmyne Quiñonez MD) Normal labor (Acute) (Acute) Rubella non-immune status, antepartum (Acute) Back pain affecting (Acute) Medical History (Updated 10/06/22 @ 02:13 by Jazmyne Quiñonez MD) Gallbladder pain History of hydronephrosis History of kidney stones Hx of ovarian cyst Surgical History S/P lumpectomy, left breast Family History Father Hypertension Paternal Grandmother Breast cancer in her 30's from breast cancer Paternal Grandfather Colon cancer Maternal Aunt Cancer multiple myeloma Social History Smoking/Tobacco Use Status: Never Second Hand Exposure: No Smoking risk assessment performed?: Yes Alcohol Intake: former Substance use type: does not use Adopted: No Caregiver/Support person: No Foster care: No Household members: spouse Number of Children: 0 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 Date GA/Weeks # Preg Succ Route Wgt Sex Labor Lgth Anesth esia Location [facility] 05/29/18 41 No Yes vaginal 7 lb 10 oz Male 36 [address] [facility] [facility] 08/15/20 41 No Yes vaginal 8 lb 1 oz Female 10 regional K J Delivery Date: 05/29/18 Last Updated by: Johnson Alexandre CNM iol for post dates. w/o c/o. Meds Allergies and Home Medications Allergies Allergy/AdvReac Type Severity Reaction Status Date / Time No Known Allergies Allergy Verified 10/03/22 10:24 Home Medications Medication Instructions Recorded Confirmed Type prenat.vits,terrell,[id number]-xbss-caznn 1 tab PO DAILY 11/05/17 10/03/22 History acetaminophen 325 mg capsule 650 mg PO ONCE PRN 07/11/20 10/03/22 History (Tylenol) diphenhydramine HCl 25 mg capsule 25 mg PO QHS PRN 09/27/22 10/03/22 History (Benadryl) Exam Physical Exam Vital signs: Pulse BP 69 117/71 10/06/22 02:01 10/06/22 02:01 Vital Signs Reviewed: Yes Detailed Labor and Delivery Exam Dilation: 4 Effacement (%): 70 station: -2 Cervix position: posterior Reyes Score: Cervical Points Exam 0 1 2 3 Dilation Closed 1-2cm 3-4 cm 5-6cm Effacement 0-30% 40-50% 60-70% 80% Consistency Firm Medium Soft Station -3 -2 -1,0 +1,+2 Position Posterior Mid Anterior Amniotic Membrane Status: Ruptured Rupture Method: Spontaneous Amniotic Fluid: Clear Fetus A Heart Rate Baseline: 120 Monitor Accelerations: 15 X 15 Monitor Decelerations: None Variability: Moderate (6-25 BPM) Presentation: Vertex Categories: Category I Date of Membrane Rupture: 10/06/22 Time of Membrane Rupture: 00:15 HEENT Exam HEENT Exam: Normal Detailed HEENT Exam Head: Present normocephalic and atraumatic Respiratory Exam Respiratory Exam: Normal Abdominal Exam Abdominal Exam: Normal (gravid, nontender) Detailed Abdominal Exam Comments: gravid, nontender Extremities Exam Extremities Exam: Normal Detailed Neurological Exam Neurological: Present alert, oriented X3 and CN II-XII intact Psychiatric Exam Psychiatric Exam: Normal DetailedPsychiatric Exam Psychiatric: Present normal affect, normal thought process and cooperative Results Results Group Beta Strep: Negative Blood Type: O+ Rubella Status: Nonimmune Varicella Immunity: Immune Risk Assessment Risk for Shoulder Dystocia Historical/Initial OB: NEGATIVE FOR: Pelvic Abnormality, Pre- BMI>30, Previous Shoulder Dystocia or Previous Macrosomia Counselin03/18/22 IVETTE Delivery Plan @ 36wks: [facility] 09/12/2022 Risk for Pre-Eclampsia Date Initiated/Initials: [place] 09/12/2022 Risk for Post- Hemorrhage Initial: NEGATIVE FOR: Multiple Gestation, Previous PPH, Known Clotting Deficiency, Grand Multiparity or Anticoagulation 36 Weeks: NEGATIVE FOR: Anemia, hgb<10, Low platelets(thrombocytopenia), Gestational HTN or Pre-E, Polyhydraminios or EFW>4500gms Counseled re: Active Management: Yes Date/Initials: 03/18/22 IVETTE, 09/12/2022 [place] Risks Reviewed Risks Reviewed Upon Admission: Yes
[2022-10-06 02:20] LABS: HGB 11.2 g/dL (11.2-15.7); MCH 27.7 pg (27.0-33.0); MCHC 33.9 % (32.0-36.0); MCV 82 fL (80-95); MPV 8.9 fL (8.0-11.0); Platelet Count 317 10^3/uL (130-400); RBC 4.05 10^6/uL (3.93-5.22); RDW 13.4 % (11.7-14.6); WBC 9.51 10^3/uL (4.4-10.8)
[2022-10-06] MEDS: Normal Saline Flush 10 ML SYR IVP (02:30)
--- NOTE | 2022-10-06 02:45 | W.ANESPRE ---
General Info Date of Service Date Performed: 10/06/22 Height: 5 ft 5 in Weight: 71.668 kg Body Mass Index (BMI): 26.2 Meds Allergies and Home Medications Allergies Allergy/AdvReac Type Severity Reaction Status Date / Time No Known Allergies Allergy Verified 10/03/22 10:24 Home Medication Medication Instructions Recorded prenat.vits,terrell,[id number] 1 tab PO DAILY 11/05/17 acetaminophen 325 mg capsule 650 mg PO ONCE PRN 07/11/20 (Tylenol) diphenhydramine HCl 25 mg capsule 25 mg PO QHS PRN 09/27/22 (Benadryl) Current Visit Medications: Current Medications Generic Name Dose Route Start Last Admin Trade Name Freq PRN Reason Stop Dose Admin Fentanyl/Ropivacaine 200 ml 10/06/22 02:45 Fentanyl/Ropivacaine 2 Mcg/Ml And 0.1% 200 Ml Cadd Cassette EP DIRECTED KAI Sodium Chloride 500 mls @ 0 mls/hr 10/06/22 01:57 Saline 500ml Bag IV PRN PRN As Directed Ringer's Solution 1,000 mls @ 125 mls/hr 10/06/22 02:00 IV INFUSION KAI IV Miscellaneous Supplies 1 each 10/06/22 02:00 Iv Access IV DIRECTED KAI Sodium Chloride 0 ml 10/06/22 01:57 Normal Saline Flush 10 Ml Syr IVP PRN PRN PFSH Active Problems Active Problems: Problem Status Onset Code Z34.90 Rubella non-immune status, antepartum O09.899, Z28.39 Back pain affecting O99.891, M54.9 Normal labor O80, Z37.9 Medical History Medical History (Updated 10/06/22 @ 02:13 by Jazmyne Quiñonez MD) Gallbladder pain History of hydronephrosis History of kidney stones Hx of ovarian cyst Surgical History Surgical History S/P lumpectomy, left breast Tobacco Smoking/Tobacco Use Status: Never Second hand exposure: No Alcohol Alcohol Intake: former Substance Use Substance use type: does not use Prental History History 3 Para 2 Hx # Term Pregnancies 2 Multiple births 0 Hx # Pregnancies 0 Ectopic pregnancies 0 AB induced 0 Hx Number of Living Children 2 AB spontaneous 0 Past Pregnancies Del. Date GA/Weeks # Preg Succ Route Wgt Sex Labor Lgth Anesthesia Location Prov [facility] 05/29/18 41 No Yes vaginal 3458.642 g Male [address] [place] 08/15/20 41 No Yes vaginal 3657.088 g Female [facility] Delivery Date: 05/29/18 Last Updated by: Johnson Alexandre CNM iol for post dates. w/o c/o. Vital Signs and Lab Results Vital Signs Most Recent Vital Signs in EMR: Most Recent Vital Signs Temp Pulse BP 36.7 C 69 117/71 10/06/22 02:01 10/06/22 02:01 10/06/22 02:01 Lab Results 10/06/22 02:08 Blood Type / Crossmatch: Patient ABO/Rh O Positive 10/06/22 Antibody Screen NEGATIVE 10/06/22 Complete Blood Count: White Blood Count 9.51 10^3/uL (4.4-10.8) 10/06/22 02:08 Red Blood Count 4.05 10^6/uL (3.93-5.22) 10/06/22 02:08 Hemoglobin 11.2 g/dL (11.2-15.7) 10/06/22 02:08 Hematocrit 33.0 % (36.0-46.0) L 10/06/22 02:08 Platelet Count 317 10^3/uL (130-400) 10/06/22 02:08 Complete Metabolic Panel: No Data to Display Liver Function Panel: No Data to Display Coagulation Panel: No Data to Display Cardiac Panel: No Data to Display Arterial Blood Gas: No Data to Display Venous Blood Gas: No Data to Display Pancreas Panel: No Data to Display Thyroid Panel: No Data to Display Infectious Disease: No Data to Display Blood Cultures: No Data to Display Toxicology Panel: Urine Amphetamines Screen Negative (Negative) 09/12/22 09:45 Urine Benzodiazepines Screen Negative (Negative) 09/12/22 09:45 Urine Barbiturates Screen Negative (Negative) 09/12/22 09:45 Urine Cocaine Screen Negative (Negative) 09/12/22 09:45 Urine Methadone Screen Negative (Negative) 09/12/22 09:45 Urine Opiates Screen Negative (Negative) 09/12/22 09:45 Ur Tricyclic Antidepressants Screen Negative (Negative) 09/12/22 09:45 Ur Tetrahydrocannabinol (THC) Scrn Negative (Negative) 09/12/22 09:45 Panel: No Data to Display Anesthesia Assessment and Plan Anesthesia History Personal History: No History of Anesthesia Complications Family History: No Family History of Anesthesia Complications Exercise Tolerance Exercise Tolerance: Metabolic Equivalents>4 Cardiac & Pulmonary Exam Cardiac Exam: Normal S1/S2 Heart Sounds Pulmonary Exam: Clear Bilateral Breath Sounds Implantable Cardiac Device Does patient have a Pacemaker or an ICD?: No Airway Exam Known Difficult Airway: No Mallampati Class: 2 Mouth Opening: Normal (> 3cm) Thyromental Distance: Greater than 3 cm Neck Range of Motion: Full ROM Neck Circumference: Normal Teeth Condition: Normal Dentition ASA Classification ASA Score: ASA 2 Emergency Case?: No NPO Status NPO Status: NPO Clears >2 hours, Solids >8 hours Status Status: Confirmed Anesthesia Plan Resuscitation Status: Full Code Anesthesia Technique: Epidural Anesthesia Airway Planned: Natural Airway Pain Management: Epidural Monitors Used: Standard Monitors Preoperative Comments:: 32 yo requesting labor epidural. last checked at ~2 at 4 cm, -2, 70%. Sig PMHx: denies major. No asthma or HTN. plt 317. Previous Anes: - epidural 2018, ERIK 6 cm, taped at 13 cm, 10 mL load with good effect. - epidural 2020, ERIK 9 cm, taped at 15, transient paresthesia, 2 attempts.
[2022-10-06] MEDS: Lactated Ringers 1,000 ML 999 ML IV (03:00)
[2022-10-06] MEDS: FentaNYL/ROPIvacaine 2 mcg/ml and 0.1% 200 ML CADD Cassette EP (03:24)
[2022-10-06] MEDS: Normal Saline Flush 10 ML SYR (03:25)
--- NOTE | 2022-10-06 03:26 | W.ANESNEU ---
Epidural/Spinal Catheter Date Performed: 10/06/22 Procedure Start: 03:07 Procedure Stop: 03:20 Requesting Provider: Jazmyne Quiñonez Procedure Location: Obstetrics Reason Performed: Labor Epidural Standard Monitors Applied: Blood Pressure and SpO2 Patient Position: Sitting Sedation Given (Indicate Dose Given): No Sedation given Patient Mental Status: Awake Sterility: Hand Hygiene, Surgical Cap, Surgical Mask, Sterile Gloves and Sterile Drape/Sheet Procedure Location: L3-L4 Interspace Epidural Needle: Tuohy 17 Guage Needle Length: 3.5 Inch Needle Approach: Midline Epidural Procedure: 1% Lidocaine to skin and subcutaneous tissue with 25G needle and ERIK to Saline Used Catheter Placed?: Catheter Placed (wire reinforced. ) Test Dose (Indicate Dose Given): 3ml 1.5% Lidocaine with 1:200K Epinephrine Given and Negative Test Dose Loss of Resistance Depth (cm): 6 Catheter depth at skin (cm): 10 Dressing: Sorbaview Dressing Placed and Mastisol Used Epidural Provider Bolus (Indicate Dose Given): Total Ropivacaine 0.1% with Fentanyl 2mcg/ml Given from pump. (ml) Dose:: 7 mL Additives (Indicate Dose Given ): None Infusion Medication: Medication Infusion Began Medication Infusion: Ropivacaine 0.1% with Fentanyl 2mcg/ml Maintenance Infusion Rate (ml/hour): 10 PCEA Bolus Dose (ml): 5 Block Level: N/A Paresthesia: None Ultrasound: Used to [place] site Number of Attempts (See previous attempts in note section): 1 Procedure Tolerated: No Complications Procedure Outcome: Successful Performed By: Harjit Arias
[2022-10-06] MEDS: Oxytocin/Normal Saline 30 UNIT/500 ML BAG 95 UNITS IV (08:10)
--- NOTE | 2022-10-06 08:55 | W.OBDELIVERY ---
Date of service: 10/06/22 Time of Service: 08:56 OB Labor/ Delivery Information Baby A Delivery Delivery Method: Spontaneaous Presentation: Vertex Vertex Position: Left Occipital Anterior Estimated Blood Loss: 200 Delivery Outcome: Liveborn Providers Doctor: Jazmyne Quiñonez House Cleaner Supervisor: Harjit Arias Nurse: Peyton Jorgensen Nurse: Jessica Neal Labor/Delivery Information Number of Babies in Womb: 1 Steroids Given: None Reason Steroids Not Administered: N/A Group Beta Strep: Negative Antibiotics Administered: No Rubella Status: Nonimmune Blood Type: O+ Varicella Immunity: Immune Note: The pt was found to be fully dilated. She pushed about 1hr to deliver the infant's head in RICHARD position followed by the shoulders with a compound hand then the rest of the body. The baby was placed on mom's abdomen. After >1min the cord was clamped x2 and cut. Cord blood collected. The placenta delivered with gentle cord traction and fundal massage and appeared intact. Fundus was firm with good hemostasis. Mom and baby stable at time of note. Stages of Labor Onset of Labor Date: 10/06/22 Onset of Labor Time: 00:15 Complete Dilatation Date: 10/06/22 Complete Dilatation Time: 06:30 Labor - Stage 1 Duration: 6 hours and 15 minutes ROM Baby A: 10/06/22 ROM Baby A: 00:15 ROM Total Time- Baby A: [id number] Infant Delivery Date-Baby A: 10/06/22 Infant Delivery Time-Baby A: 08:03 Labor Stage 2 Duration: 1 hours and 33 minutes Placenta Delivery Date-Baby A: 10/06/22 Placenta Delivery Time-Baby A: 08:08 Labor-Stage 3 Duration: 5 minutes Total Length of Labor-Baby A: 7 hours and 48 minutes Placenta Status: Delivered Baby A Gender: Female Gestational Status: Term (39-41.6 wks) Gestational Age in Weeks/Days: 39 Weeks and 5 Days Length-Baby A: 19.5 in Score-1 Minute Interval(Baby A) Heart Rate-1 minute: 100 BPM or Greater Respiratory Effort- 1 minute: Spontaneous/Strong Cry Muscle Tone-1 minute: Active Movement Reflex Response-1 minute: Prompt Response Color-1 minute: Bluish Hands or Feet Total Score-1 minute: 9 Score-5 Minute Interval(Baby A) Heart Rate- 5 minute: 100 BPM or Greater Respiratory Effort-5 minute: Spontaneous/Strong Cry Muscle Tone-5 minute: Active Movement Reflex Response-5 minute: Prompt Response Color-5 minute: Bluish Hands or Feet Total Score- 5 minute: 9
[2022-10-06] MEDS: Ibuprofen 600 MG TAB PO ×3 (10:30→23:06)
[2022-10-06] MEDS: Dibucaine 1% 28 GM TUBE (11:04)
[2022-10-06] MEDS: Hamamelis Leaf/Glycerin 100 EACH BOX PR (11:04)
--- NOTE | 2022-10-06 13:36 | W.ANESPOSTOP ---
Postoperative Evaluation Date, Time and Location Date Performed: 10/06/22 Time Performed: 13:37 Patient Location: Obstetrics Vital Signs Most Recent Imported Vital Signs: Most Recent Vital Signs Temp Pulse Resp BP Pulse Ox 36.5 C 78 16 116/74 99 10/06/22 12:00 10/06/22 12:00 10/06/22 12:00 10/06/22 12:00 10/06/22 12:00 Assessment Mental Status: Awake (Alert & Oriented to Patient Baseline) Airway and Respiratory Function: Patent airway with normal (patient baseline) respiratory exam Cardiovascular Function: Hemodynamically Stable Hydration Status: Adequately Hydrated Nausea & Vomiting: No Nausea or Vomiting Pain: Pain is tolerable per patient Peripheral Nerve Block: Patient did not receive a nerve block Postoperative Comments:: Currently sleeping, RN states she is doing well, epidural out at ~08, has not yet voided, bladder scanned for ~200 mLs. Otherwise no issues.
[2022-10-06] MEDS: Acetaminophen 325 MG TAB 650 MG PO ×2 (14:20→20:30)
[2022-10-06] MEDS: Docusate Sodium 100 MG CAP PO (20:30)
[2022-10-07] MEDS: Acetaminophen 325 MG TAB 650 MG PO ×3 (00:30→10:18)
[2022-10-07] MEDS: Ibuprofen 600 MG TAB PO (05:13)
[2022-10-07 07:00] VITALS: BP 110/67; PULSE 65; RESP 16; TEMP 36.8
[2022-10-07 07:47] LABS: HCT 31.6 % (36.0-46.0); HGB 10.7 g/dL (11.2-15.7); MCH 27.9 pg (27.0-33.0); MCHC 33.9 % (32.0-36.0); MCV 82 fL (80-95); MPV 8.8 fL (8.0-11.0); Platelet Count 289 10^3/uL (130-400); RBC 3.84 10^6/uL (3.93-5.22); RDW 13.7 % (11.7-14.6); RDW-SD 40.7 fL; WBC 12.18 10^3/uL (4.4-10.8)
[2022-10-07] MEDS: Measles, Mumps, & Rubella Vaccine 0.5 ML VIAL SC (10:22)
--- NOTE | 2022-10-07 10:58 | W.PM.OBDISCH ---
Date of service: 10/07/22 Time of Service: 11:00 DS: Diagnosis Discharge Diagnosis (1) Normal labor: Status: Resolved Discharge Plan Disposition Patient Disposition: Home Condition: Stable Discharge Details Reason For Visit: Labor Admit Date/Time: 10/06/22 01:57 Admit Provider: Jazmyne Quiñonez Attending Provider: Jazmyne Quiñonez Primary Care Provider: Lenora Patten Home Meds and New Rx's Prescriptions: No Action prenat.vits,terrell,qhk-qjpe-btqmr tablet 1 tab PO DAILY diphenhydramine HCl [Benadryl] 25 mg capsule 25 mg PO QHS PRN acetaminophen [Tylenol] 325 mg capsule 650 mg PO ONCE PRN Patient Comments: Uses every 4-6 hours as needed. Discharge Instructions Stand Alone Forms: BC Instructions, BC Post Vaginal Deliver Activity:: Activity as Tolerated Equipment/Supplies:: No Equipment Needed Diet:: As Tolerated Discharge Data Discharge Date/Time-TO BE ENTERED AT DEPARTURE: 10/07/22 11:15 OB:DS Summary Summary Vaginal Delivery Method: Spontaneaous Episiotomy Description: None Laceration Description: None Laceration Extension: N/A Contraception Discussed Contraception Discussed: Yes (NFP), [place] Infant Gender-Baby A: Female weight: 6 lb 13.702 oz Status at Discharge Functional status at discharge: independent ambulation Overall status at discharge: patient is back to baseline Mental Status: mental status grossly normal Speech and Movement: speech and movement normal Mood: congruent mood Affect: normal affect Exam Physical Exam Vital signs: Temp Pulse Resp BP Pulse Ox 98.2 F 65 16 110/67 99 10/07/22 07:00 10/07/22 07:00 10/07/22 07:00 10/07/22 07:00 10/06/22 12:00 Vital Signs Reviewed: Yes Constitutional Constitutional: no acute distress and cooperative Detailed HEENT Exam Head: Present normocephalic and atraumatic Respiratory Exam Respiratory Exam: Normal Abdominal Exam Abdomen: Tender (mildly) Fundal Exam Fundus: Below Umbilicus and Firm Extremities Exam Extremity Exam: negative Calf Tenderness or Edema Detailed Neurological Exam Neurological: Present alert, oriented X3 and CN II-XII intact [facility] Medical History (Updated 10/10/22 @ 08:57 by Jazmyne Quiñonez MD) Gallbladder pain History of hydronephrosis History of kidney stones Hx of ovarian cyst Swelling of left lower extremity Surgical History S/P lumpectomy, left breast Family History Father Hypertension Paternal Grandmother Breast cancer in her 30's from breast cancer Paternal Grandfather Colon cancer Maternal Aunt Cancer multiple myeloma Social History Smoking/Tobacco Use Status: Never Second Hand Exposure: No Smoking risk assessment performed?: Yes Alcohol Intake: former Substance use type: does not use Adopted: No Caregiver/Support person: No Foster care: No Household members: spouse Housing: house Number of Children: 0 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 Date GA/Weeks # Preg Succ Route Wgt Sex Labor Lgth Anesthesia Location [facility] 05/29/18 41 No Yes vaginal 7 lb 10 oz Male [address] [place] 08/15/20 41 No Yes vaginal 8 lb 1 oz Female 10 [facility] 10/06/22 40 No Yes vaginal Female 6hr [facility] Delivery Date: 05/29/18 Last Updated by: Johnson Alexandre CNM iol for post dates. w/o c/o. Delivery Date: 10/06/22 Last Updated by: Jazmyne Quiñonez MD PROM with progression into labor. Shayla MILLER: Data Vitals/I&O Vitals and I&O: Vital Signs Temperature 98.2 F 10/07/22 07:00 Temperature Source Oral 10/07/22 07:00 Pulse 65 10/07/22 07:00 Pulse Rhythm Regular 10/07/22 07:00 Respiratory Rate 16 10/07/22 07:00 Blood Pressure 110/67 10/07/22 07:00 Blood Pressure Mean 81 10/07/22 07:00 Pulse Oximetry 99 10/06/22 12:00 Oxygen Delivery Method Room Air 10/06/22 02:28 Oxygen Flow Rate 0 10/06/22 02:28 Pain Level 5 10/07/22 10:18 Intake & Output 10/06/22 10/06/22 10/07/22 11:59 23:59 11:59 Intake Total 924.467 / 1424.467 500 / 1424.467 Output Total 750 / 750 Balance 174.467 / 674.467 500 / 674.467 Weight 158 lb Intake: IV 924.467 / 1424.467 500 / 1424.467 Output: Urine 750 / 750 Other: Urine Color Yellow Yellow Urine Appearance Clear Urine Odor None Data Completed and Pending Labs on day of discharge: Labs from last 24 hours 10/07/22 07:35 WBC 12.18 H RBC 3.84 L Hgb 10.7 L Hct 31.6 L MCV 82 MCH 27.9 MCHC 33.9 RDW 13.7 Plt Count 289 MPV 8.8
== END 2022-10-07 11:15 | disposition home or self-care (01) | DRG 807 ==
PROVIDERS: Admitting Provider Obstetrics & Gynecology; PCP Family Medicine; Visit Provider Obstetrics & Gynecology
DX: O75.89 Other specified complications of labor and delivery (principal); Z37.0 Single live birth; Z3A.39 39 weeks gestation of pregnancy; M54.9 Dorsalgia, unspecified
CPT/HCPCS: 36415; 85027; 86850; 86900; 86901

== ENCOUNTER → 2022-10-08 10:14 | Outpatient (CLI) | payer MEDICAID, SELFPAY ==
--- NOTE | 2022-10-08 10:00 | DI.US_ITS ---
Exam(s) US LOWER EXTREMITY VENOUS LT EXAM: US LOWER EXTREMITY VENOUS LT CLINICAL HISTORY: Evaluate for clot, complication, swelling lt lower ext, O90.89 TECHNIQUE: Left lower extremity venous ultrasound performed using grayscale, color-flow, and spectra l Doppler analysis. COMPARISON: No exams were available for comparison FINDINGS: The left common femoral, femoral and popliteal veins demonstrate normal compressibility, augmentation , and color Doppler. The posterior tibial and peroneal veins are patent. The saphenofemoral junction is unremarkable. There is no evidence of a Sanford cyst. The soft tissues are unremarkable. IMPRESSION: No evidence of a left lower extremity DVT. DATA REPOSITORY:
== END ==
PROVIDERS: PCP Family Medicine; Visit Provider Obstetrics & Gynecology
DX: M79.89 Other specified soft tissue disorders (principal); O90.89 Other complications of the puerperium, not elsewhere classified
CPT/HCPCS: 93971

== ENCOUNTER 2024-11-11 20:21 | Outpatient (REF) | payer SELFPAY ==
[2024-11-11 21:27] LABS: RBC Negative HPF (0-2)
[2024-11-15 11:56] LABS: Chlamydia Result Negative (Negative); GC Result Negative (Negative)
== END 2024-11-11 20:22 | disposition home or self-care (01) ==
LOC: LBN 20:21
PROVIDERS: PCP Family Medicine; Visit Provider Physician Assistant Medical
DX: R30.0 Dysuria (principal)
CPT/HCPCS: 87491; 87591; 81015; 87086; 87480; 87510; 87660